=== PATIENT | female | born 1970 | race Caucasian/White ===

== ENCOUNTER 2018-08-23 20:14 | Emergency (ER) | payer OTHER, SELFPAY ==
[2018-08-23 20:31] VITALS: BP 155/94; PULSE 92; RESP 15; TEMP 37.2; O2SAT 96
--- NOTE | 2018-08-23 20:31 | ED.PSYCH ---
HPI - Psych General Chief Complaint: Psychiatric Symptoms Stated Complaint: possibly taken to much medication, tonight Time Seen by Provider: 08/23/18 20:19 Source: family Mode of arrival: ambulatory Limitations: no limitations History of Present Illness HPI Narrative: Patient is a 48-year-old female brought in by . is concerned he cannot find prescription of Paxil. He says she had a new prescription filled 90 days worth and there are 15 pills missing. Patient states that she only took 2 tablets. When asked directly if she is suicidal she does not answer. She is not forthcoming with information. She would like to be left alone. She denies taking any Xanax. She is hesitant to even have vitals done. Has been states that she has had a very difficult year she is an only child, in fact her brother when she was 8 years old her mother at the end of May and her dad is alling. MD complaint: feels depressed Related Data Home Medications Medication Instructions Recorded Confirmed levonorgestrel [Mirena] 52 mg IU #0 06/26/12 Previous Rx's Medication Instructions Recorded azithromycin [Zithromax] 250 - 500 mg PO QDAY #6 tab 06/24/17 benzonatate [Tessalon Perles] 100 mg PO TID #21 cap 06/24/17 codeine-guaifenesin 5 ml PO QHS #60 ml 06/24/17 Allergies Allergy/AdvReac Type Severity Reaction Status Date / Time lactose-reduced food Allergy Severe HIVES Verified 08/23/18 20:31 [From ENSURE] nutritional Allergy Severe HIVES Verified 08/23/18 20:31 supplement,special formulas [From ENSURE] codeine [CODEINE] Allergy Unknown Verified 08/23/18 20:31 sertraline [From ZOLOFT] Allergy Unknown Verified 08/23/18 20:31 Review of Systems Review of Systems unobtainable due to mental condition [facility] Surgical History History of third molar tooth extraction Status post delivery (01/07/06) Exam Initial Vital Signs Initial Vital Signs: Vital Signs Temperature 98.9 F 08/23/18 20:31 Pulse Rate 92 H 08/23/18 20:31 Respiratory Rate 15 08/23/18 20:31 Blood Pressure 155/94 H 08/23/18 20:31 Pulse Oximetry 96 08/23/18 20:31 Gen.: Patient very withdrawn poor eye contact HEENT: Head atraumatic, AISHA, EOMI Neck: Neck is supple Lungs: No respiratory distress. Clear bilaterally no wheezes rales or rhonchi Cardiac: No cyanosis. Regular rate rhythm no murmur Extremities: No deformity Neurologic: Moving all extreme Course Orders Ordered: ED Orders 08/23/18 20:48 Acetaminophen Stat Complete Blood Count AUTO DIFF Stat Comprehensive Metabolic Panel Stat Ethanol (ETOH) Stat Lactate (Lactic Acid) Stat Salicylate Stat Discontinued Medications Lorazepam (Ativan) 1 mg PO NOW ONE Stop: 08/23/18 21:45 Last Admin: 08/23/18 21:47 Dose: 1 mg Vital Signs - 8 hr 08/23/18 20:31 08/23/18 22:01 Temperature 98.9 F Pulse Rate 92 H 81 Respiratory Rate 15 18 Blood Pressure 155/94 H Blood Pressure [Left Wrist] 134/68 Pulse Oximetry 96 100 MDM - Psych Lab Data Attestation: I reviewed the patient's lab results. Result diagrams: 08/23/18 20:48 08/23/18 20:48 Lab Results 08/23/18 08/23/18 08/23/18 Range/Units 20:48 20:48 20:48 WBC 7.5 (4.5-11.0) X10^3/uL RBC 4.35 (4.0-5.2) X10^6/uL Hgb 14.5 (12.0-16.0) g/dL Hct 42.8 (36-46) % MCV 98.2 (80-100) fL MCH 33.2 (26-34) PG MCHC 33.8 (30-36) % RDW 12.9 (11.6-14.8) % Plt Count 316 (150-400) X10^3/uL Neut % (Auto) 61.6 (50-75) % Lymph % (Auto) 27.1 (25-40) % [place] % (Auto) 8.2 (3-14) % Eos % (Auto) 2.1 (2-4) % Baso % (Auto) 1.0 (0-2) % Neut # (Auto) 4600 (7122-2704) /uL Sodium 138 (137-145) mmol/L Potassium 3.9 (3.4-5.1) mmol/L Chloride 103 (98-107) mmol/L Carbon Dioxide 22 (22-32) mmol/L BUN 20 H (7-17) mg/dL Creatinine 0.90 (0.52-1.04) mg/dL Estimated GFR > 60.0 (>60) mL/min BUN/Creatinine Ratio 22.2 H (6-22) Glucose 87 (70-100) mg/dL Lactate 0.8 (0.7-2.1) mmol/L Calcium 9.4 (8.4-10.2) mg/dL Total Bilirubin 0.3 (0.2-1.3) mg/dL AST 25 (14-36) IU/L ALT 32 (9-52) IU/L Alkaline Phosphatase 90 (38-126) U/L Total Protein 6.7 (6.3-8.2) g/dL Albumin 4.2 (3.5-5.0) g/dL Globulin 2.5 (1.7-4.1) g/dL Albumin/Globulin Ratio 1.7 (1.0-2.8) Salicylates < 1.0 (<20) mg/dL Acetaminophen < 10 L (10-30) ug/mL Ethyl Alcohol < 10 mg/dL MDM Narrative Medical decision making narrative: Patient very withdrawn poor eye contact. I did talk to the patient without in the room. She was able to tell me that she only took 2 Paxil today she does not want to talk about anything further. She tried to get up and walk as room. Her was able to talk her into staying. She initially refused vitals, but was agreeable to have her who is an RN take vitals with help of our nursing staff. She then was agreeable to have blood work drawn. With suddenly patient became awake and much more talkative. She seemed back to her normal self. She can't remember why she is here but she knows she is at [facility]. She denies any suicidal ideations. She again states that she only took 2 Paxil. When confronted that there may be up to 15 pills missing is she is not sure why there would be. 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 Overall she has had a stressful year but feels like she wants to live. She feels ready and able to go home her would like to take her home. He feels safe doing so. Possible drug reaction versus a conversion reaction. At this time she is agreeable to be for a full exam. No sign of serotonin syndrome blood work within normal limits. She has told me twice that she only took 2 Paxil. At this time she is acting normal appropriate alert and oriented and does not meet involuntary criteria. Discharge Plan Departure Patient Disposition: Home Clinical Impression: Adverse drug reaction Discharge Date/Time: 08/23/18 22:02 Interventions: ED Discharge Assessment Last Done: 08/23/18 22:01 Instructions: Paroxetine Activity Restrictions/Additional Instructions: *You have been diagnosed with possible drug reaction *What to do: Unclear exactly what happened today. Blood work is reassuring. *Continue to take medications as directed Paxil 20 mg once a day *Follow up with your primary care provider in 2-3 days *Return to ER if you should have change in behavior, increased confusion or any new, worsening or concerning symptoms Prescriptions: No Action levonorgestrel [Mirena] 1 EACH intrauterine device 52 mg IU Qty: 0 RF: 0 azithromycin [Zithromax] 250 MG tablet 250 - 500 mg PO QDAY Qty: 6 RF: 0 benzonatate [Tessalon Perles] 100 MG capsule 100 mg PO TID Qty: 21 RF: 0 codeine-guaifenesin 100 MG/10 MG liquid 5 ml PO QHS Qty: 60 RF: 0 Referrals: Niko Acevedo MD [Primary Care Provider] -
[2018-08-23 20:59] LABS: Add Manual Diff / Slide Review NO; Eosinophils Percent Auto 2.1 % (2-4); Hematocrit 42.8 % (36-46); Hemoglobin 14.5 g/dL (12.0-16.0); Lymphocytes Percent Auto 27.1 % (25-40); Mean Corpuscular HGB Conc 33.8 % (30-36); Mean Corpuscular Hemoglobin 33.2 PG (26-34); Mean Corpuscular Volume 98.2 fL (80-100); Monocytes Percent Auto 8.2 % (3-14); Neutrophils Absolute Auto 4600 /uL (1500-7000); Neutrophils Percent Auto 61.6 % (50-75); Platelet Count 316 X10^3/uL (150-400); Red Blood Cell Count 4.35 X10^6/uL (4.0-5.2); Red Cell Distribution Width 12.9 % (11.6-14.8); White Blood Cell Count 7.5 X10^3/uL (4.5-11.0)
[2018-08-23 21:18] LABS: Acetaminophen < 10 ug/mL (10-30); Alanine Aminotransferase 32 IU/L (9-52); Albumin 4.2 g/dL (3.5-5.0); Albumin Globulin Ratio 1.7 (1.0-2.8); Alkaline Phosphatase 90 U/L (38-126); Aspartate Aminotransferase 25 IU/L (14-36); BUN Creatinine Ratio 22.2 (6-22); Bilirubin Total 0.3 mg/dL (0.2-1.3); Blood Urea Nitrogen 20 mg/dL (7-17); Calcium 9.4 mg/dL (8.4-10.2); Carbon Dioxide 22 mmol/L (22-32); Chloride 103 mmol/L (98-107); Estimated Glomerular Filt Rate > 60.0 mL/min (>60); Ethanol (ETOH) < 10 mg/dL; Globulin 2.5 g/dL (1.7-4.1); Glucose 87 mg/dL (70-100); HEMOLYSIS < 15 (0-50); Lactate (Lactic Acid) 0.8 mmol/L (0.7-2.1); Potassium 3.9 mmol/L (3.4-5.1); Sodium 138 mmol/L (137-145); Total Protein 6.7 g/dL (6.3-8.2)
[2018-08-23 21:19] LABS: Salicylate < 1.0 mg/dL (<20)
[2018-08-23] MEDS: LORazepam 0.5 MG TABLET 1 MG PO (21:47)
[2018-08-23 22:01] VITALS: BP 134/68; PULSE 81; RESP 18; O2SAT 100
== END 2018-08-23 22:02 | disposition home or self-care (01) ==
PROVIDERS: Emergency Provider Emergency Medicine; PCP Family Medicine
DX: F32.9 Major depressive disorder, single episode, unspecified (principal); T50.905A Adverse effect of unspecified drugs, medicaments and biological substances, initial encounter
CPT/HCPCS: 36415; 80053; 80320; 80329; 83605; 85025; 99282; 99283; G0480

== ENCOUNTER → 2019-03-22 14:21 | Outpatient (CLI) | payer OTHER, SELFPAY ==
[2019-03-22 15:15] LABS: Add Manual Diff / Slide Review NO; Basophils Absolute Auto 100 /uL (0-100); Basophils Percent Auto 0.6 % (0-2); Eosinophils Absolute Auto 100 /uL (0-450); Eosinophils Percent Auto 0.9 % (2-4); Hematocrit 38.9 % (36-46); Lymphocytes Absolute Auto 2500 /uL (1100-4500); Lymphocytes Percent Auto 25.5 % (25-40); Mean Corpuscular HGB Conc 33.4 % (30-36); Mean Corpuscular Hemoglobin 33.4 PG (26-34); Mean Corpuscular Volume 99.9 fL (80-100); Monocytes Absolute Auto 700 /uL (0-900); Monocytes Percent Auto 7.6 % (3-14); Neutrophils Absolute Auto 6400 /uL (1500-7000); Neutrophils Percent Auto 65.4 % (50-75); Platelet Count 371 X10^3/uL (150-400); Red Blood Cell Count 3.89 X10^6/uL (4.0-5.2); Red Cell Distribution Width 13.7 % (11.6-14.8); White Blood Cell Count 9.8 X10^3/uL (4.5-11.0)
[2019-03-22 15:30] LABS: Alanine Aminotransferase 28 IU/L (9-52); Albumin 3.9 g/dL (3.5-5.0); Albumin Globulin Ratio 1.4 (1.0-2.8); Alkaline Phosphatase 102 U/L (38-126); Aspartate Aminotransferase 25 IU/L (14-36); Bilirubin Total 0.3 mg/dL (0.2-1.3); Blood Urea Nitrogen 19 mg/dL (7-17); Calcium 9.4 mg/dL (8.4-10.2); Carbon Dioxide 26 mmol/L (22-32); Chloride 100 mmol/L (98-107); Cholesterol 207 mg/dL (140-199); Estimated Glomerular Filt Rate 59.7 mL/min (>60); Globulin 2.8 g/dL (1.7-4.1); Glucose 70 mg/dL (70-100); HDL Cholesterol 44 mg/dL (40-60); HEMOLYSIS < 15 (0-50); LDL Cholesterol Calculated 110 mg/dL (<100); Potassium 4.3 mmol/L (3.4-5.1); Sodium 137 mmol/L (137-145); Total Protein 6.7 g/dL (6.3-8.2); Triglycerides 265 mg/dL (35-150)
[2019-03-22 15:57] LABS: Thyroid Stimulating Hormone 5.87 uIU/mL (0.47-4.68)
== END ==
PROVIDERS: PCP Family Medicine; Visit Provider Psychiatry & Neurology Psychiatry
DX: F30.9 Manic episode, unspecified (principal); Z01.89 Encounter for other specified special examinations; Z51.81 Encounter for therapeutic drug level monitoring; Z79.899 Other long term (current) drug therapy
CPT/HCPCS: 36415; 80053; 80061; 84443; 85025

== ENCOUNTER → 2019-04-05 15:13 | Outpatient (CLI) | payer OTHER, SELFPAY ==
[2019-04-05 15:32] LABS: RBC Urine None Seen (0-5/HPF)
[2019-04-05 15:34] LABS: Add Manual Diff / Slide Review NO; Basophils Absolute Auto 0 /uL (0-100); Basophils Percent Auto 0.7 % (0-2); Eosinophils Absolute Auto 0 /uL (0-450); Eosinophils Percent Auto 0.5 % (2-4); Hematocrit 37.9 % (36-46); Hemoglobin 12.9 g/dL (12.0-16.0); Lymphocytes Absolute Auto 2300 /uL (1100-4500); Lymphocytes Percent Auto 33.7 % (25-40); Mean Corpuscular HGB Conc 34.1 % (30-36); Mean Corpuscular Hemoglobin 33.8 PG (26-34); Mean Corpuscular Volume 99.3 fL (80-100); Monocytes Absolute Auto 600 /uL (0-900); Monocytes Percent Auto 9.1 % (3-14); Neutrophils Absolute Auto 3900 /uL (1500-7000); Platelet Count 325 X10^3/uL (150-400); Red Blood Cell Count 3.81 X10^6/uL (4.0-5.2); Red Cell Distribution Width 13.6 % (11.6-14.8)
[2019-04-05 16:43] LABS: Alanine Aminotransferase 29 IU/L (9-52); Albumin 3.8 g/dL (3.5-5.0); Albumin Globulin Ratio 1.4 (1.0-2.8); Alkaline Phosphatase 129 U/L (38-126); Aspartate Aminotransferase 24 IU/L (14-36); BUN Creatinine Ratio 16.4 (6-22); Bilirubin Total 0.3 mg/dL (0.2-1.3); Blood Urea Nitrogen 18 mg/dL (7-17); Calcium 9.2 mg/dL (8.4-10.2); Carbon Dioxide 27 mmol/L (22-32); Chloride 103 mmol/L (98-107); Estimated Glomerular Filt Rate 53.2 mL/min (>60); Globulin 2.8 g/dL (1.7-4.1); Glucose 72 mg/dL (70-100); HEMOLYSIS < 15 (0-50); Phosphorous 4.3 mg/dL (2.5-4.5); Potassium 4.8 mmol/L (3.4-5.1); Sodium 139 mmol/L (137-145); Total Protein 6.6 g/dL (6.3-8.2)
[2019-04-05 17:00] LABS: Free T4, Direct Thyroxine 0.41 ng/dL (0.78-2.19)
[2019-04-05 17:14] LABS: Thyroid Stimulating Hormone 6.17 uIU/mL (0.47-4.68)
[2019-04-05 17:49] LABS: Folate > 20.0 ng/mL (2.76-20.0); Vitamin B12 462 pg/mL (239-931)
[2019-04-05 18:18] LABS: HIV 1 & 2 Ab/Ag 4th Gen Combo NEGATIVE (NEGATIVE)
[2019-04-05 19:43] LABS: Appearance Urine UA CLEAR; Bilirubin Urine UA NEGATIVE (NEGATIVE); Color Urine UA YELLOW; Glucose Urine UA NEGATIVE (Negative); Ketones Urine UA NEGATIVE (NEGATIVE); Leukocyte Esterase Urine UA NEGATIVE (NEGATIVE); Nitrite Urine UA NEGATIVE (Negative); Occult Blood Urine UA NEGATIVE (Negative); Protein Urine UA NEGATIVE (Negative); Specific Gravity Urine UA <=1.005 (1.000-1.035); Urobilinogen Urine UA 0.2 E.U./dL (0.2); pH Urine UA 5.5 (4.5-8.0)
[2019-04-05 19:56] LABS: Pregnancy Test Urine Negative (Negative); Urine Amphetamines Negative (Negative); Urine Barbiturates Negative (Negative); Urine Benzodiazepines Positive (Negative); Urine Cocaine Negative (Negative); Urine MDMA Negative (Negative); Urine Methadone Negative (Negative); Urine Methamphetamines Negative (Negative); Urine Morphine/Opi cutoff 2000 Negative (Negative); Urine Oxycodone Negative (Negative); Urine Phencyclidine Negative (Negative); Urine Tetrahydrocannabinol Negative (Negative); Urine Tricyclic Antidepressant Negative (Negative)
[2019-04-05 20:03] LABS: Squamous Epithelial Cell Urine 5-10 /HPF (0-5/HPF)
[2019-04-05 20:04] LABS: Bacteria Urine Moderate (10-30); Culture Indicated Urine Cult Not Indicated; WBC Urine 1-5/HPF (0-5/HPF)
[2019-04-07 23:56] LABS: RPR Screen Nonreactive (Nonreactive)
== END ==
PROVIDERS: PCP Family Medicine; Visit Provider Psychiatry & Neurology Psychiatry
DX: F29 Unspecified psychosis not due to a substance or known physiological condition (principal); F30.9 Manic episode, unspecified
CPT/HCPCS: 36415; 80053; 80305; 81001; 81025; 82607; 82746; 84100; 84439; 84443; 85025; 86592; 87389

== ENCOUNTER → 2019-04-18 14:47 | Outpatient (CLI) | payer OTHER, SELFPAY ==
--- NOTE | 2019-04-18 14:48 | DI.CT.S_ITS ---
PROCEDURE: CT HEAD/BRAIN WO CON INDICATIONS: New onset iza psychosis, rule out lesions/causal factor TECHNIQUE: Noncontrast 4.5 mm thick angled axial sections acquired from the foramen magnum to the vertex, with coronal and sagittal reformats. For radiation dose reduction, the following was used: automated exposure control, adjustment of mA and/or kV according to patient size. COMPARISON: None. FINDINGS: Image quality: Excellent. CSF spaces: Basal cisterns are patent. No extra-axial fluid collections. Ventricles are normal in size and shape. Brain: No midline shift. No intracranial masses or hemorrhage. Zamora-white matter interface is normal. Skull and face: Calvarium and visualized facial bones are intact, without suspicious lesions. Sinuses: Visualized sinuses and mastoids are clear. IMPRESSION: Normal for age, source of altered mental status is not seen. Dictated by: Keegan Beverly M.D. on 04/18/2019 at 15:16 Approved by: Keegan Beverly M.D. on 04/18/2019 at 15:17
== END ==
PROVIDERS: Family Provider Family Medicine; PCP Family Medicine; Visit Provider Psychiatry & Neurology Psychiatry
DX: F30.9 Manic episode, unspecified (principal); F29 Unspecified psychosis not due to a substance or known physiological condition
CPT/HCPCS: 70450

== ENCOUNTER 2020-05-26 15:06 | Emergency (ER) | payer OTHER, SELFPAY ==
[2020-05-26 15:18] VITALS: BP 118/74; PULSE 88; RESP 16; TEMP 36.7; O2SAT 97
--- NOTE | 2020-05-26 15:18 | DI.RAD.S_ITS ---
PROCEDURE: XR WRIST LT MIN 3V INDICATIONS: glf, lt wrist/elbow pain TECHNIQUE: 4 views of the wrist were acquired. COMPARISON: None. FINDINGS: Bones: No fractures or dislocations. No suspicious bony lesions. Scaphoid view: No trauma. Soft tissues: No suspicious soft tissue calcifications. IMPRESSION: No trauma found. Dictated by: Keegan Beverly M.D. on 05/26/2020 at 15:46 Approved by: Keegan Beverly M.D. on 05/26/2020 at 15:46
--- NOTE | 2020-05-26 15:18 | DI.RAD.S_ITS ---
PROCEDURE: XR ELBOW LT MIN 3V INDICATIONS: glf, lt wrist/elbow pain TECHNIQUE: 3 views of the elbow were acquired. COMPARISON: None. FINDINGS: Bones: No fractures or dislocations. No suspicious bony lesions. Soft tissues: No elbow joint effusion. No suspicious soft tissue calcifications. IMPRESSION: No trauma found. Dictated by: Keegan Beverly M.D. on 05/26/2020 at 15:51 Approved by: Keegan Beverly M.D. on 05/26/2020 at 15:51
--- NOTE | 2020-05-26 16:27 | ED_ITS ---
HPI - Extremity Injury (Upper) <Queta ParisiLOLI - Last Filed: 05/26/20 21:41> General Chief Complaint: Extremity Injury, Upper Stated Complaint: left elbow / wrist injury Time Seen by Provider: 05/26/20 15:13 Source: patient Mode of arrival: Ambulatory History of Present Illness HPI narrative: 50yo female presents to the ED for left wrist and elbow pain. Patient states she tripped on the sidewalk and fell on her left hand. She states the pain was instant insignificant, she lied on the sidewalk for 5-10 minutes due to the pain. She was able to get up in states the pain is a dull aching pain that is worse with movement and her left elbow and wrist. Patient denies any previous injury to her left arms. She reports abrasions to left to her left elbow. Patient denies any head injury, syncope, dizziness, nausea, vomiting, diarrhea, shoulder pain, or any other concerns. Denies any other injuries. Related Data Home Medications Medication Instructions Recorded Confirmed levonorgestrel [Mirena] 52 mg IU #0 06/26/12 05/15/20 levothyroxine 25 mcg tablet 75 mcg PO DAILY #60 tab 06/14/19 05/15/20 propranolol 20 mg tablet 40 mg PO BID tab 06/14/19 05/15/20 multivitamin 1 tab PO DAILY 07/19/19 05/15/20 famotidine 20 mg tablet 20 mg PO DAILY 09/10/19 05/15/20 furosemide 20 mg tablet 40 mg PO DAILY PRN tab 01/15/20 05/15/20 L-theanine 200 mg PO BID 05/15/20 Previous Rx's Medication Instructions Recorded ziprasidone HCl 20 mg capsule 20 mg PO BID PRN #60 cap 12/27/19 haloperidol 5 mg tablet 5 mg PO BID PRN #60 tab 04/08/20 diazepam 10 mg tablet 10 mg PO .COMPLEX #120 tab MDD 40mg 05/12/20 ziprasidone HCl 80 mg capsule 80 mg PO BID #60 cap 05/15/20 Allergies Allergy/AdvReac Type Severity Reaction Status Date / Time monosodium glutamate Allergy Severe Anaphylaxis Verified 05/15/20 16:00 codeine [CODEINE] Allergy Unknown Verified 05/15/20 16:00 sertraline [From ZOLOFT] Allergy Unknown Verified 05/15/20 16:00 Review of Systems <LOLI Harrison - Last Filed: 05/26/20 21:41> Review of Systems Narrative: REVIEW OF SYSTEMS: GENERAL: Denies fever or chills. HENT: No head trauma. CARDIOVASCULAR: No chest pain or syncope. RESPIRATORY: No shortness of breath or cough. GASTROINTESTINAL: No nausea. MUSCULOSKELETAL: Complains of right hand and elbow pain, see HPI. INTEGUMENTARY: No rash, lesions, or pruritus. NEURO: No numbness, tingling. PSYCH: No behavior or mood changes. Patient History <LOLI Harrison - Last Filed: 05/26/20 21:41> Medical History No significant medical problems (Acute) Surgical History History of third molar tooth extraction Status post delivery (01/07/06) Social History Smoking Status: Current every day smoker (1/4 pack day ) Smoking Status: Current every day smoker (1/4 pack day ) Exam <LOLI Harrison - Last Filed: 05/26/20 21:41> Initial Vital Signs Initial Vital Signs: Vital Signs Temperature 98.1 F 05/26/20 15:18 Pulse Rate 88 05/26/20 15:18 Respiratory Rate 16 05/26/20 15:18 Blood Pressure 118/74 05/26/20 15:18 Pulse Oximetry 97 05/26/20 15:18 PHYSICAL EXAMINATION: GENERAL: Well groomed, alert, and cooperative. Answers questions promptly and appropriately. Vital signs noted. HENT: Normocephalic, atraumatic. EYES: Symmetrical, sclera white, no periorbital swelling. CARDIOVASCULAR: Regular rate. RESPIRATORY: Normal respiratory rate, trachea midline, airway patent. No stridor, nasal flaring or accessory muscle use. MUSCULOSKELETAL: Tenderness to palpation of left wrist and elbow, a 8 cm x 4 cm abrasion noted to left elbow, no bruising, swelling, or deformity. Decreased range of motion to elbow and wrist due to pain. Normal gait and coordination. Equal tone and mass bilaterally. EXTREMITIES: CMS intact. No pedal edema. SKIN: Warm, dry, soft, appropriate color for ethnicity. No lesions, rashes, or wounds. NEURO: Alert and Oriented X 3. No sensory deficits. PSYCH: Appropriate affect and mood. <Musa Amaya MD - Last Filed: 06/23/20 03:10> Initial Vital Signs Initial Vital Signs: Vital Signs Temperature 98.1 F 05/26/20 15:18 Pulse Rate 88 05/26/20 15:18 Respiratory Rate 16 05/26/20 15:18 Blood Pressure 118/74 05/26/20 15:18 Pulse Oximetry 97 05/26/20 15:18 Course <LOLI Harrison - Last Filed: 05/26/20 21:41> Course Course Narrative: Bacitracin applied to wound, patient given wrist brace to help with pain. Orders Ordered: Discontinued Medications Bacitracin (Bacitracin) 1 applic TOP NOW ONE Stop: 05/26/20 16:14 Last Admin: 05/26/20 16:32 Dose: 1 applic Documented by: DARIA Ketorolac Tromethamine (Toradol) 30 mg IM NOW ONE Stop: 05/26/20 16:14 Last Admin: 05/26/20 16:32 Dose: 30 mg Documented by: DARIA Vital Signs Vital signs: Vital Signs - 8 hr 05/26/20 15:18 Temperature 98.1 F Pulse Rate 88 Respiratory Rate 16 Blood Pressure 118/74 Pulse Oximetry 97 <Musa Amaya MD - Last Filed: 06/23/20 03:10> Orders Ordered: Discontinued Medications Bacitracin (Bacitracin) 1 applic TOP NOW ONE Stop: 05/26/20 16:14 Last Admin: 05/26/20 16:32 Dose: 1 applic Documented by: DARIA Ketorolac Tromethamine (Toradol) 30 mg IM NOW ONE Stop: 05/26/20 16:14 Last Admin: 05/26/20 16:32 Dose: 30 mg Documented by: DARIA Vital Signs Vital signs: Vital Signs - 8 hr 05/26/20 15:18 Temperature 98.1 F Pulse Rate 88 Respiratory Rate 16 Blood Pressure 118/74 Pulse Oximetry 97 MDM - Extremity Injury (Upper) <LOLI Harrison - Last Filed: 05/26/20 21:41> Medical Records Attestation: I reviewed the patient's medical records. Lab Data Attestation: I reviewed the patient's lab results. Imaging Data Extremity x-ray #1: Radiologist's Impression: [address] [address] XRay Report Signed Patient: Eliz Todd [facility]#: [id number] : 1970Acct:[id number] Age/Sex: 50 / FDate of Service: 05/26/20 Loc: ED Accession Number: [id number] Procedure: XR wrist LT min 3V Ordering Provider: Queta Parisi PROCEDURE: XR WRIST LT MIN 3V INDICATIONS: glf, lt wrist/elbow pain TECHNIQUE: 4 views of the wrist were acquired. COMPARISON: None. FINDINGS: Bones: No fractures or dislocations. No suspicious bony lesions. Scaphoid view: No trauma. Soft tissues: No suspicious soft tissue calcifications. IMPRESSION: No trauma found. Dictated by: Keegan Beverly M.D. on 05/26/2020 at 15:46 Approved by: Keegan Beverly M.D. on 05/26/2020 at 15:46 Extremity x-ray #2: Radiologist's Impression: [address] [address] XRay Report Signed Patient: Eliz Todd [facility]#: [id number] : 1970Acct:[id number] Age/Sex: 50 / FDate of Service: 05/26/20 Loc: ED Accession Number: [id number] Procedure: XR elbow LT min 3V Ordering Provider: Queta Parisi PROCEDURE: XR ELBOW LT MIN 3V INDICATIONS: glf, lt wrist/elbow pain TECHNIQUE: 3 views of the elbow were acquired. COMPARISON: None. FINDINGS: Bones: No fractures or dislocations. No suspicious bony lesions. Soft tissues: No elbow joint effusion. No suspicious soft tissue calcifications. IMPRESSION: No trauma found. Dictated by: Keegan Beverly M.D. on 05/26/2020 at 15:51 Approved by: Keegan Beverly M.D. on 05/26/2020 at 15:51 [facility] Narrative Medical decision making narrative: History and examination reveals a 50-year-old female complaining of mechanical fall with left wrist and elbow pain. X-rays negative for any fractures. I suspect wrist pain is most likely caused by strain. Abrasion noted without need for suture repair. Bacitracin applied. Patient was educated about importance of follow-up and watching for infection. Return precautions given for new or worsening symptoms. Patient agreed to plan of care verbalized understanding Discharge Plan Departure Patient Disposition: Home Clinical Impression: Sprain of left wrist, Abrasion Discharge Date/Time: 05/26/20 16:37 Instructions: DI for Wrist Pain Activity Restrictions/Additional Instructions: Thank you for entrusting me with your care today. As discussed, your elbow and wrist x-rays are negative for any fractures. You most likely sprained your wrist. I recommend wearing a brace for the next few days to help with pain. Please apply bacitracin to your abrasion, keep the area clean, wash with soap and water. Watch for signs of infection such as increasing redness, purulent drainage, or significant pain if these occur please be seen immediately. Return emergency department for any new or worsening symptoms. Prescriptions: No Action levothyroxine 25 mcg tablet 75 mcg PO DAILY Qty: 60 RF: 0 furosemide [Lasix] 20 mg tablet 40 mg PO DAILY PRNRF: 0 propranolol 20 mg tablet 40 mg PO BID RF: 0 multivitamin Tablet 1 tab PO DAILY RF: 0 famotidine [Pepcid] 20 mg tablet 20 mg PO DAILY RF: 0 haloperidol 5 mg tablet 5 mg PO BID PRN (Reason: agitation) Qty: 60 RF: 2 Hold Instructions: 02/18 ziprasidone HCl 80 mg capsule 80 mg PO BID Qty: 60 RF: 1 L-theanine 200 mg PO BID RF: 0 levonorgestrel [Mirena] 1 EACH intrauterine device 52 mg IU Qty: 0 RF: 0 ziprasidone HCl 20 mg capsule 20 mg PO BID PRN (Reason: anxiety/agitation) Qty: 60 RF: 5 diazepam 10 mg tablet 10 mg PO .COMPLEX MDD 40mg Qty: 120 RF: 1 Referrals: Niko Acevedo MD [Primary Care Provider] -
[2020-05-26] MEDS: KETOROLAC 60 MG/2 ML VIAL 30 MG IM (16:32)
[2020-05-26] MEDS: BACITRACIN OINT 0.9 GM PCKT 1 APPLIC TOP (16:32)
== END 2020-05-26 16:37 | disposition home or self-care (01) ==
PROVIDERS: Emergency Provider Nurse Practitioner; Family Provider Family Medicine; PCP Family Medicine
DX: S63.502A Unspecified sprain of left wrist, initial encounter (principal); W01.0XXA Fall on same level from slipping, tripping and stumbling without subsequent striking against object, initial encounter
CPT/HCPCS: 73080; 73110; 96372; 99283; 99284; J1885

== ENCOUNTER → 2020-07-25 12:20 | Outpatient (CLI) | payer OTHER, SELFPAY ==
[2020-07-25 13:16] LABS: Alanine Aminotransferase 17 IU/L (<35); Albumin 3.8 g/dL (3.5-5.0); Albumin Globulin Ratio 1.4 (1.0-2.8); Alkaline Phosphatase 113 U/L (38-126); Aspartate Aminotransferase 21 IU/L (14-36); BUN Creatinine Ratio 14.1 (6-22); Bilirubin Total 0.3 mg/dL (0.2-1.3); Blood Urea Nitrogen 11 mg/dL (7-17); Calcium 8.7 mg/dL (8.4-10.2); Carbon Dioxide 26 mmol/L (22-32); Chloride 105 mmol/L (98-107); Creatine Kinase 32 U/L (30-135); Estimated Glomerular Filt Rate > 60.0 mL/min (>60); Globulin 2.8 g/dL (1.7-4.1); Glucose 107 mg/dL (70-100); HEMOLYSIS 25 (0-50); Potassium 4.3 mmol/L (3.4-5.1); Sodium 138 mmol/L (137-145); Total Protein 6.6 g/dL (6.3-8.2)
[2020-07-25 14:12] LABS: Thyroid Stimulating Hormone 3.13 uIU/mL (0.47-4.68)
== END ==
PROVIDERS: Family Provider Family Medicine; PCP Family Medicine; Referring Provider Psychiatry & Neurology Psychiatry; Visit Provider Psychiatry & Neurology Psychiatry
DX: F31.9 Bipolar disorder, unspecified (principal); M79.10 Myalgia, unspecified site; Z51.81 Encounter for therapeutic drug level monitoring; E03.9 Hypothyroidism, unspecified
CPT/HCPCS: 36415; 80053; 82550; 83735; 84443

== ENCOUNTER → 2021-02-05 14:30 | Outpatient (CLI) | payer OTHER, SELFPAY ==
[2021-02-05] MEDS: COVID-19 VACC, Ad26(JANSSEN)/PF 0.5 ML IM (14:36)
== END ==
PROVIDERS: Visit Provider Internal Medicine
DX: Z23 Encounter for immunization (principal)
CPT/HCPCS: 0031A; 91303

== ENCOUNTER → 2021-05-17 13:58 | Outpatient (CLI) | payer OTHER, SELFPAY ==
[2021-05-17 15:22] LABS: Add Manual Diff / Slide Review NO; Basophils Absolute Auto 100 /uL (0-100); Basophils Percent Auto 0.9 % (0-2); Eosinophils Absolute Auto 100 /uL (0-450); Eosinophils Percent Auto 0.7 % (2-4); Hematocrit 42.7 % (36-46); Hemoglobin 14.2 g/dL (12.0-16.0); Lymphocytes Absolute Auto 2300 /uL (1100-4500); Mean Corpuscular HGB Conc 33.2 % (30-36); Mean Corpuscular Hemoglobin 32.3 PG (26-34); Mean Corpuscular Volume 97.3 fL (80-100); Monocytes Absolute Auto 600 /uL (0-900); Monocytes Percent Auto 6.8 % (3-14); Neutrophils Absolute Auto 5500 /uL (1500-7000); Neutrophils Percent Auto 64.6 % (50-75); Platelet Count 354 X10^3/uL (150-400); Red Blood Cell Count 4.39 X10^6/uL (4.0-5.2); Red Cell Distribution Width 13.9 % (11.6-14.8); White Blood Cell Count 8.5 X10^3/uL (4.5-11.0)
[2021-05-17 15:23] LABS: Hemoglobin A1C% w Est Avg Glu 5.1 % (4.0-6.0)
[2021-05-17 15:46] LABS: Alanine Aminotransferase 15 IU/L (<35); Albumin 3.9 g/dL (3.5-5.0); Albumin Globulin Ratio 1.3 (1.0-2.8); Alkaline Phosphatase 145 U/L (38-126); Aspartate Aminotransferase 21 IU/L (14-36); BUN Creatinine Ratio 18.7 (6-22); Bilirubin Total 0.2 mg/dL (0.2-1.3); Blood Urea Nitrogen 14 mg/dL (7-17); Carbon Dioxide 30 mmol/L (22-32); Chloride 105 mmol/L (98-107); Cholesterol 238 mg/dL (140-199); Estimated Glomerular Filt Rate > 60.0 mL/min (>60); Globulin 2.9 g/dL (1.7-4.1); Glucose 92 mg/dL (70-100); HDL Cholesterol 34 mg/dL (40-60); HEMOLYSIS < 15 (0-50); Potassium 4.1 mmol/L (3.4-5.1); Sodium 141 mmol/L (137-145); Total Protein 6.8 g/dL (6.3-8.2)
[2021-05-17 15:53] LABS: Triglycerides 684 mg/dL (35-150)
[2021-05-17 16:16] LABS: Thyroid Stimulating Hormone 2.28 uIU/mL (0.47-4.68)
== END ==
PROVIDERS: PCP Physician Assistant; Referring Provider Psychiatry & Neurology Psychiatry; Visit Provider Psychiatry & Neurology Psychiatry
DX: E03.9 Hypothyroidism, unspecified (principal); F31.9 Bipolar disorder, unspecified; Z51.81 Encounter for therapeutic drug level monitoring
CPT/HCPCS: 36415; 80053; 80061; 83036; 84443; 85025

== ENCOUNTER → 2021-08-13 13:44 | Outpatient (CLI) | payer OTHER, SELFPAY ==
[2021-08-13 15:19] LABS: NT-proBNP (BNP-Adult 18+) 99 pg/mL (<125)
[2021-08-13 16:42] LABS: Creatinine Urine Random 32.3 mg/dL; Protein (Total) Urine Random 14 mg/dL (0-12); Protein Creatinine Ratio Urine 0.43 GRAM/24H
== END ==
PROVIDERS: PCP Physician Assistant; Referring Provider Internal Medicine Cardiovascular Disease; Visit Provider Internal Medicine Cardiovascular Disease
DX: R06.02 Shortness of breath (principal); R60.1 Generalized edema
CPT/HCPCS: 36415; 82570; 83880; 84156

== ENCOUNTER 2021-09-27 16:30 | Emergency (ER) | payer OTHER, SELFPAY | END 2021-09-27 17:53 | disposition left against medical advice (07) | PROVIDERS: Emergency Provider Emergency Medicine; PCP Physician Assistant | DX: Z53.21 Procedure and treatment not carried out due to patient leaving prior to being seen by health care provider (principal) ==

== ENCOUNTER 2021-10-03 10:58 | Inpatient (IN) | payer MEDICARE, SELFPAY ==
[2021-10-03] VITALS (33 sets, daily range): BP systolic 122–154; BP diastolic 61–82; PULSE 62–87; RESP 20–69; TEMP 36.2–39.6; O2SAT 90–98; BMI 31.8
--- NOTE | 2021-10-03 11:28 | ED.SOB ---
HPI - SOB/Dyspnea General Chief Complaint: Shortness of Breath/Dyspnea Stated Complaint: covid +, high fever, oxygen goes to 80 Time Seen by Provider: 10/03/21 11:27 Source: patient Mode of arrival: Ambulatory Limitations: no limitations History of Present Illness HPI Narrative: This is a 51-year-old female with a history of bipolar disorder with psychotic features, prior benzodiazepine abuse and agoraphobia. Patient states she is vaccinated for coronavirus. Symptoms started about 10 days ago. Patient is somewhat confused but states she has chest pain. She has had fevers. She denies nausea or vomiting. She denies diarrhea constipation. Patient has been using home O2 that was left over from a family member. Patient has had increasing work of breathing. Patient states she does feel confused. She is repetitive when she answers questions. Related Data Home Medications Medication Instructions Recorded Confirmed levonorgestrel 20 mcg/24 hours (7 52 mg IU #0 06/26/12 08/09/21 yrs) 52 mg intrauterine device (Mirena) levothyroxine 25 mcg tablet 75 mcg PO DAILY #60 tab 06/14/19 10/03/21 multivitamin 1 tab PO DAILY 07/19/19 10/03/21 famotidine 20 mg tablet (Pepcid) 20 mg PO DAILY 09/10/19 10/03/21 L-theanine 200 mg PO BID 05/15/20 10/03/21 methocarbamol 500 mg tablet 500 - 1,000 mg PO QID tab 08/25/20 10/03/21 tramadol 50 mg tablet 50 mg PO Q6H PRN tab 08/09/21 10/03/21 aripiprazole 5 mg tablet 7.5 mg PO BEDTIME 10/03/21 10/03/21 diazepam 10 mg tablet 30 mg PO BID 10/03/21 10/03/21 propranolol 40 mg tablet 40 mg PO BID 10/03/21 10/03/21 Previous Rx's Medication Instructions Recorded duloxetine 40 mg capsule,delayed 40 mg PO DAILY #90 cap 06/11/21 release aripiprazole 300 mg intramuscular 300 mg IM QMONTH #1 ea 09/24/21 suspension,extended release (Abilify Maintena) Allergies Allergy/AdvReac Type Severity Reaction Status Date / Time monosodium glutamate Allergy Severe Anaphylaxis Verified 08/09/21 15:57 paliperidone Allergy Intermediate Rash/hives Verified 08/09/21 15:57 codeine [CODEINE] Allergy Unknown Verified 08/09/21 15:57 sertraline [From ZOLOFT] Allergy Unknown Verified 08/09/21 15:57 Review of Systems Review of Systems ROS Unobtainable: All systems reviewed & are unremarkable except as noted in HPI and below Patient History Medical History Hypothyroidism Laly No significant medical problems Surgical History History of third molar tooth extraction Status post delivery (01/07/06) Social History household members: spouse Smoking Status: Current every day smoker alcohol intake: former Smoking Status: Current every day smoker Substance Use Type: does not use Exam Narrative Exam Narrative: GEN: Disheveled female, alert and oriented but is somewhat repetitive to some questions, patient appears to be in severe distress. HEENT: Atraumatic, pupils are equal round reactive to light, extraocular movements are intact, nares are clear. HEART: Regular rate and rhythm without murmur, clicks, rubs. No carotid bruits, pulses are equal in upper and lower extremities LUNGS:Lungs the breath sounds decreased bilaterally, positive for tachypnea, speaks in 3-4 word sentences. No rales, crackles, chest moves symmetrically ABD:bowel sounds normal, soft, non-tender, no guarding, rebound, rigidity, no masses noted, no hepatosplenomegaly :No CVA tenderness MSCL: Non-tender, no muscle atrophy, muscles strength 5/5 upper and lower extremities, full range of motion NEURO:CN 2-12 intact, sensation normal, reflexes 2/4 upper and lower extremities. SKIN: No rash, erythema or other skin changes noted. Initial Vital Signs Initial Vital Signs: Vital Signs Temperature 98.7 F 10/03/21 11:04 Pulse Rate 79 10/03/21 11:04 Respiratory Rate 32 H 10/03/21 11:04 Blood Pressure 139/75 10/03/21 11:04 Pulse Oximetry 92 10/03/21 11:04 Scores GCS Kandace coma scale eye opening: Spontaneous Kandace coma scale verbal response: Confused Kandace coma scale motor response: Obey commands [place] coma scale total score: 14 Course Orders Ordered: ED Orders 10/03/21 11:38 C-Reactive Protein Quant Stat Complete Blood Count AUTO DIFF Stat Comprehensive Metabolic Panel Stat D Dimer Stat Ferritin Stat Lactate (Lactic Acid) Stat Lactate Dehydrogenase Stat NT-proBNP (BNP-Adult 18+) Stat Procalcitonin Stat Troponin & CK Cardiac Panel Stat 10/03/21 11:39 XR chest 1V Stat ABG [Arterial Blood Gas] Stat Arterial Blood Gas Stat EKG-12 Lead Stat High flow/High humidity nasal STAT 10/03/21 11:50 COVID19 -Nasal swab/Pre-Proc Stat 10/03/21 11:56 CT head/brain wo con Stat 10/03/21 12:00 Blood Culture Stat 10/03/21 13:38 Urine Drug Screen, Rapid Stat Acetaminophen (Acetaminophen 325 Mg Tablet) 650 mg PO Q6HR PRN PRN Reason: Fever Aripiprazole (Aripiprazole 10 Mg Tablet) 7.5 mg PO BEDTIME [facility] Dexamethasone (Dexamethasone 10 Mg/Ml Vial) 6 mg IV DAILY [facility] Stop: 10/13/21 08:59 Diazepam (Diazepam 5 Mg Tablet) 10 mg PO BID [facility] Diazepam (Diazepam 5 Mg Tablet) 20 mg PO DAILY@1400 [facility] Diazepam (Diazepam 5 Mg Tablet) 20 mg PO DAILY@1700 [facility] Docusate Sodium (Docusate 100 Mg Capsule) 100 mg PO BID [facility] Duloxetine HCl (Duloxetine 20 Mg Capsule) 40 mg PO DAILY [facility] Enoxaparin Sodium (Enoxaparin 40 Mg/0.4 Ml Syringe) 40 mg SUBCUT DAILY [facility] Famotidine (Famotidine 20 Mg Tablet) 20 mg PO DAILY [facility] Remdesivir 100 mg/ Sodium (Chloride) 250 mls @ 250 mls/hr IV 1200 [facility] Stop: 10/07/21 12:59 dexmedeTOMIDine in 0.9 % NaCL (Precedex) 400 mcg in 100 mls @ 4.082 mls/hr IV TITRATE M[facility]IMA; Protocol Last Titration: 10/03/21 17:17 Dose: 0.3 mcg/kg/hr, 6.124 mls/hr Documented by: Admin: 10/03/21 15:39 Dose: 0.2 mcg/kg/hr, 4.082 mls/hr Documented by: KENTRELL Sodium Chloride (Normal Saline 0.9%) 1,000 mls @ 40 mls/hr IV CONT [facility] Levothyroxine Sodium (Levothyroxine 75 Mcg Tablet) 75 mcg PO DAILY@0600 [facility] Magnesium Hydroxide (Magnesium Hydroxide 30 Ml Udc) 30 ml PO BID [facility] Naloxone HCl (Naloxone 0.4 Mg/Ml Vial) 0.2 mg IV Q2MIN PRN PRN Reason: Opiate Reversal Nicotine (Nicotine 21 Mg Patch) 21 mg TOP DAILY [facility] Propranolol HCl (Propranolol 40 Mg Tablet) 40 mg PO BID [facility] Sennosides (Sennosides 8.6 Mg Tablet) 17.2 mg PO BEDTIME [facility] Tramadol HCl (Tramadol 50 Mg Tablet) 50 mg PO QID [facility] Last Admin: 10/03/21 16:42 Dose: 50 mg Documented by: KENTRELL Discontinued Medications Dexamethasone (Dexamethasone 10 Mg/Ml Vial) 6 mg IV NOW ONE Stop: 10/03/21 11:41 Last Admin: 10/03/21 11:58 Dose: 6 mg Documented by: GERARDO Diazepam (Diazepam 5 Mg Tablet) 30 mg PO NOW ONE Stop: 10/03/21 14:56 Last Admin: 10/03/21 15:36 Dose: 30 mg Documented by: KENTRELL Diazepam (Diazepam 5 Mg Tablet) 30 mg PO BID [facility] Remdesivir 200 mg/ Sodium (Chloride) 250 mls @ 250 mls/hr IV NOW ONE Stop: 10/03/21 12:39 Last Infusion: 10/03/21 13:20 Dose: 0 mls/hr Documented by: Infusion: 10/03/21 12:58 Dose: 250 mls/hr Documented by: Infusion: 10/03/21 12:38 Dose: 0 mls/hr Documented by: Admin: 10/03/21 11:58 Dose: 250 mls/hr Documented by: GERARDO Ceftriaxone Sodium 1,000 mg/ (Sodium Chloride) 100 mls @ 200 mls/hr IV NOW ONE Stop: 10/03/21 15:45 Last Infusion: 10/03/21 16:33 Dose: 0 mls/hr Documented by: Admin: 10/03/21 16:03 Dose: 200 mls/hr Documented by: KENTRELL Vital Signs Vital signs: Vital Signs - 8 hr 10/03/21 11:04 10/03/21 11:29 10/03/21 11:30 Temperature 98.7 F Pulse Rate 79 77 78 Respiratory Rate 32 H 61 H 69 H Blood Pressure 139/75 148/74 H Pulse Oximetry 92 98 98 10/03/21 11:49 10/03/21 11:50 10/03/21 12:00 Temperature Pulse Rate 79 80 82 Respiratory Rate 63 H 46 H 62 H Blood Pressure 150/82 H 150/82 H 122/65 Pulse Oximetry 93 96 98 10/03/21 12:30 10/03/21 12:55 10/03/21 13:00 Temperature Pulse Rate 78 79 78 Respiratory Rate 38 H 40 H 41 H Blood Pressure 128/68 130/72 129/70 Pulse Oximetry 98 96 97 10/03/21 13:30 Temperature Pulse Rate 86 Respiratory Rate 38 H Blood Pressure Pulse Oximetry 97 MDM - SOB/Dyspnea Lab Data Result diagrams: 10/03/21 11:38 10/03/21 11:38 Labs: Lab Results 10/03/21 10/03/21 10/03/21 Range/Units 11:38 11:38 11:38 WBC 4.6 (4.5-11.0) X10^3/uL RBC 4.37 (4.0-5.2) X10^6/uL Hgb 13.9 (12.0-16.0) g/dL Hct 41.2 (36-46) % MCV 94.4 (80-100) fL MCH 31.7 (26-34) PG MCHC 33.6 (30-36) % RDW 13.7 (11.6-14.8) % Plt Count 246 (150-400) X10^3/uL Neut % (Auto) 69.9 (50-75) % Lymph % (Auto) 15.2 L (25-40) % [place] % (Auto) 14.1 H (3-14) % Eos % (Auto) 0.4 L (2-4) % Baso % (Auto) 0.4 (0-2) % Neut # (Auto) 3200 (8601-1697) /uL Lymph # (Auto) 700 L (6147-5928) /uL [place] # (Auto) 600 (0-900) /uL Eos # (Auto) 0 (0-450) /uL Baso # (Auto) 0 (0-100) /uL D-Dimer 459 H (<230) ng/mL ABG pH (7.35-7.45) ABG pCO2 (35-45) mmHg ABG pO2 (80-100) mmHg ABG HCO3 (22-26) mmol/L ABG Total CO2 (21-31) mmol/L ABG O2 Saturation (95-100) % ABG Base Excess (-2-2) mmol/L FiO2 Sodium 138 (137-145) mmol/L Potassium 3.9 (3.4-5.1) mmol/L Chloride 98 (98-107) mmol/L Carbon Dioxide 33 H (22-32) mmol/L BUN 8 (7-17) mg/dL Creatinine 0.71 (0.52-1.04) mg/dL Estimated GFR > 60.0 (>60) mL/min BUN/Creatinine Ratio 11.3 (6-22) Glucose 92 (70-100) mg/dL Lactate (0.7-2.1) mmol/L Calcium 8.8 (8.4-10.2) mg/dL Ferritin 866 H (6-137) ng/mL Total Bilirubin 0.4 (0.2-1.3) mg/dL AST 60 H (14-36) IU/L ALT 36 H (<35) IU/L Alkaline Phosphatase 117 (38-126) U/L Lactate Dehydrogenase 1358 H (313-618) U/L Total Creatine Kinase 85 (30-135) U/L CK-MB (CK-2) TNP CK-MB (CK-2) Rel Index TNP Troponin I < 0.012 (0.01-0.034) ng/mL C-Reactive Protein 18.5 H (<1.0) mg/dL NT-Pro-B Natriuret Pep 494 H (<125) pg/mL Total Protein 7.2 (6.3-8.2) g/dL Albumin 3.9 (3.5-5.0) g/dL Globulin 3.3 (1.7-4.1) g/dL Albumin/Globulin Ratio 1.2 (1.0-2.8) Procalcitonin 0.09 (<0.5) ng/mL TSH (0.47-4.68) uIU/mL SARS-CoV-2 (PCR) (Negative) 10/03/21 10/03/21 10/03/21 Range/Units 11:38 11:38 11:39 WBC (4.5-11.0) X10^3/uL RBC (4.0-5.2) X10^6/uL Hgb (12.0-16.0) g/dL Hct (36-46) % MCV (80-100) fL MCH (26-34) PG MCHC (30-36) % RDW (11.6-14.8) % Plt Count (150-400) X10^3/uL Neut % (Auto) (50-75) % Lymph % (Auto) (25-40) % [place] % (Auto) (3-14) % Eos % (Auto) (2-4) % Baso % (Auto) (0-2) % Neut # (Auto) (0847-3556) /uL Lymph # (Auto) (9222-2166) /uL [place] # (Auto) (0-900) /uL Eos # (Auto) (0-450) /uL Baso # (Auto) (0-100) /uL D-Dimer (<230) ng/mL ABG pH 7.46 H (7.35-7.45) ABG pCO2 40.8 (35-45) mmHg ABG pO2 75 L (80-100) mmHg ABG HCO3 29 H (22-26) mmol/L ABG Total CO2 30 (21-31) mmol/L ABG O2 Saturation 96 (95-100) % ABG Base Excess 5.0 H (-2-2) mmol/L FiO2 28 Sodium (137-145) mmol/L Potassium (3.4-5.1) mmol/L Chloride (98-107) mmol/L Carbon Dioxide (22-32) mmol/L BUN (7-17) mg/dL Creatinine (0.52-1.04) mg/dL Estimated GFR (>60) mL/min BUN/Creatinine Ratio (6-22) Glucose (70-100) mg/dL Lactate 1.5 (0.7-2.1) mmol/L Calcium (8.4-10.2) mg/dL Ferritin (6-137) ng/mL Total Bilirubin (0.2-1.3) mg/dL AST (14-36) IU/L ALT (<35) IU/L Alkaline Phosphatase (38-126) U/L Lactate Dehydrogenase (313-618) U/L Total Creatine Kinase (30-135) U/L CK-MB (CK-2) CK-MB (CK-2) Rel Index Troponin I (0.01-0.034) ng/mL C-Reactive Protein (<1.0) mg/dL NT-Pro-B Natriuret Pep (<125) pg/mL Total Protein (6.3-8.2) g/dL Albumin (3.5-5.0) g/dL Globulin (1.7-4.1) g/dL Albumin/Globulin Ratio (1.0-2.8) Procalcitonin (<0.5) ng/mL TSH 1.04 (0.47-4.68) uIU/mL SARS-CoV-2 (PCR) (Negative) 10/03/21 Range/Units 11:50 WBC (4.5-11.0) X10^3/uL RBC (4.0-5.2) X10^6/uL Hgb (12.0-16.0) g/dL Hct (36-46) % MCV (80-100) fL MCH (26-34) PG MCHC (30-36) % RDW (11.6-14.8) % Plt Count (150-400) X10^3/uL Neut % (Auto) (50-75) % Lymph % (Auto) (25-40) % [place] % (Auto) (3-14) % Eos % (Auto) (2-4) % Baso % (Auto) (0-2) % Neut # (Auto) (5953-3085) /uL Lymph # (Auto) (6564-2721) /uL [place] # (Auto) (0-900) /uL Eos # (Auto) (0-450) /uL Baso # (Auto) (0-100) /uL D-Dimer (<230) ng/mL ABG pH (7.35-7.45) ABG pCO2 (35-45) mmHg ABG pO2 (80-100) mmHg ABG HCO3 (22-26) mmol/L ABG Total CO2 (21-31) mmol/L ABG O2 Saturation (95-100) % ABG Base Excess (-2-2) mmol/L FiO2 Sodium (137-145) mmol/L Potassium (3.4-5.1) mmol/L Chloride (98-107) mmol/L Carbon Dioxide (22-32) mmol/L BUN (7-17) mg/dL Creatinine (0.52-1.04) mg/dL Estimated GFR (>60) mL/min BUN/Creatinine Ratio (6-22) Glucose (70-100) mg/dL Lactate (0.7-2.1) mmol/L Calcium (8.4-10.2) mg/dL Ferritin (6-137) ng/mL Total Bilirubin (0.2-1.3) mg/dL AST (14-36) IU/L ALT (<35) IU/L Alkaline Phosphatase (38-126) U/L Lactate Dehydrogenase (313-618) U/L Total Creatine Kinase (30-135) U/L CK-MB (CK-2) CK-MB (CK-2) Rel Index Troponin I (0.01-0.034) ng/mL C-Reactive Protein (<1.0) mg/dL NT-Pro-B Natriuret Pep (<125) pg/mL Total Protein (6.3-8.2) g/dL Albumin (3.5-5.0) g/dL Globulin (1.7-4.1) g/dL Albumin/Globulin Ratio (1.0-2.8) Procalcitonin (<0.5) ng/mL TSH (0.47-4.68) uIU/mL SARS-CoV-2 (PCR) Positive H (Negative) Point of Care Testing Test Results Negative Imaging Data Chest x-ray: Radiologist's Impression: [address] [address] XRay Report Signed Patient: Eliz Todd MR#: [id number] : 1970 Acct:[id number] Age/Sex: 51 / F Date of Service: 10/03/21 Loc: ED Accession Number: [id number] ?? Procedure: XR chest 1V Ordering Provider: Gabby Whitney D.O. PROCEDURE:? XR CHEST 1V ? INDICATIONS:? + COVID 10 days, chest pain ? TECHNIQUE:? One view of the chest was acquired.? ? COMPARISON:? [facility], CR, CHEST 2 VIEW, 06/24/2010, 11:12.? [facility], CT, CT HEAD/BRAIN WO CON, 10/03/2021, 12:03. ? FINDINGS:? ? Surgical changes and devices:? None.? ? Lungs and pleura:? Low lung volumes are noted. This causes a crowded appearance to the lung markings and limits evaluation.? Diffuse bilateral patchy interstitial infiltrates are seen. On this semiupright portable chest examination, no large pneumothorax or large pleural effusions are seen.? ? Mediastinum:? Mediastinal contours appear normal.? Heart size is normal.? ? Bones and chest wall:? No suspicious bony lesions.? Overlying soft tissues appear unremarkable.? IMPRESSION:? Patchy bilateral interstitial infiltrates are seen, which are consistent with the known clinical history of COVID pneumonia.? ? Dictated by: Eugenio Turner M.D. on 10/03/2021 at 12:07 ? ? Approved by: Eugenio Turner M.D. on 10/03/2021 at 12:07?? CT scan - head: Radiologist's Impression: Launch?[place] [address] CT Scan Report Signed Patient: Eliz Todd MR#: [id number] : 1970 Acct:[id number] Age/Sex: 51 / F Date of Service: 10/03/21 Loc: ED Accession Number: [id number] ?? Procedure: CT head/brain wo con Ordering Provider: Gabby Whitney D.O. PROCEDURE:? CT HEAD/BRAIN WO CON ? INDICATIONS:? confusion ? TECHNIQUE:? Noncontrast 4.5 mm thick angled axial sections acquired from the foramen magnum to the vertex, with coronal and sagittal reformats.? For radiation dose reduction, the following was used:? automated exposure control, adjustment of mA and/or kV according to patient size.? ? COMPARISON:? [facility], CR, XR CHEST 1V, 10/03/2021, 11:40.? [facility], CT, CT HEAD/BRAIN WO CON, 04/18/2019, 14:49. ? FINDINGS:? Image quality:? Mild streak artifact can be seen through the skull base. ? CSF spaces:? Basal cisterns are patent.? No extra-axial fluid collections.? Ventricles are normal in size and shape.? ? Brain:? No midline shift.? No intracranial masses or hemorrhage.? Zamora-white matter interface is normal.? ? Skull and face:? Calvarium and visualized facial bones are intact, without suspicious lesions.? ? Sinuses:? Visualized sinuses and mastoids are clear.? IMPRESSION:? No kristy acute abnormality can be seen on this limited noncontrast head CT. ? If there is strong clinical suspicion for an acute stroke, please consider a brain MRI for further evaluation, as it is more sensitive (assuming that there is no contraindication to MRI). ? Dictated by: Eugenio Turner M.D. on 10/03/2021 at 12:08 ? ? Approved by: Eugenio Turner M.D. on 10/03/2021 at 12:09?? ECG Data Attestation: I personally reviewed and interpreted this ECG as follows: Prior ECG tracings: not available for review Interpretation: Normal sinus rhythm rate 81 LA 142 QRS 84 QTC of 420. No acute ST elevation. Inconsistent changes in lateral leads so this may be motion artifact. RSR in lateral leads. No priors available. MDM Narrative Medical decision making narrative: This is a 51-year-old female comes emergency department approximately 10-12 days of COVID symptoms. Patient states she is vaccinated and boosted. Patient is is COVID positive here in the department. She has changes consistent with coronavirus on her chest x-ray in his quite tachypneic and was started on high-flow for work of breathing. She states she was 80% at times at home. She is confused with a history of bipolar but does not appear to be psychotic but more confused. Head CT was obtained which is negative. Inflammatory markers are consistent with worsening COVID infection. EKG does not show any acute changes. Patient was started on dexamethasone and remdesivir after discussion and agreement by the patient. She does not have any other focal neurologic changes. It was noted that patient has been on Valium in the past and her states she takes 60 mg total daily, this was clarified as 10 mg 1st thing in the morning 2 doses of 20 mg twice during the day and additional 10 mg in the evening. Unclear patient has missed any doses and this may be contributing to her mental status change. This was relayed to the hospitalist. Patient D-dimer was also noted to be elevated but at this time will defer on CT angio secondary to her COVID being the likely cause of her elevation. Patient accepted by Dr. Marcos for inpatient admission. Critical Care Time Critical Care Time Critical Care Time: Yes Total Critical Care Time: 45 Attestation: The high probability of a clinically significant, sudden or life threatening deterioration of the [pulm, cardiac] system(s) required my full and direct attention, intervention and personal management. The aggregate critical care time was [] minutes. This time is in addition to time spent performing reported procedures but includes the following: [x] Data Review and interpretation [x] Patient assessment and monitoring of vital signs [x] Documentation [x] Medication orders and management Discharge Plan Departure Patient Disposition: Admitted As Inpatient Clinical Impression: Pneumonia due to 2019 novel coronavirus, Confusion, Benzodiazepine dependence Admit Date/Time: 10/03/21 13:32 Admit Provider: Enoc Marcos
--- NOTE | 2021-10-03 11:39 | DI.RAD.S_ITS ---
PROCEDURE: XR CHEST 1V INDICATIONS: + COVID 10 days, chest pain TECHNIQUE: One view of the chest was acquired. COMPARISON: [facility], CR, CHEST 2 VIEW, 06/24/2010, 11:12. [facility], CT, CT HEAD/BRAIN WO CON, 10/03/2021, 12:03. FINDINGS: Surgical changes and devices: None. Lungs and pleura: Low lung volumes are noted. This causes a crowded appearance to the lung markings and limits evaluation. Diffuse bilateral patchy interstitial infiltrates are seen. On this semiupright portable chest examination, no large pneumothorax or large pleural effusions are seen. Mediastinum: Mediastinal contours appear normal. Heart size is normal. Bones and chest wall: No suspicious bony lesions. Overlying soft tissues appear unremarkable. IMPRESSION: Patchy bilateral interstitial infiltrates are seen, which are consistent with the known clinical history of COVID pneumonia. Dictated by: Eugenio Turner M.D. on 10/03/2021 at 12:07 Approved by: Eugenio Turner M.D. on 10/03/2021 at 12:07
[2021-10-03 11:48] LABS: Add Manual Diff / Slide Review NO; Basophils Absolute Auto 0 /uL (0-100); Basophils Percent Auto 0.4 % (0-2); Eosinophils Absolute Auto 0 /uL (0-450); Eosinophils Percent Auto 0.4 % (2-4); Hematocrit 41.2 % (36-46); Hemoglobin 13.9 g/dL (12.0-16.0); Lymphocytes Absolute Auto 700 /uL (1100-4500); Lymphocytes Percent Auto 15.2 % (25-40); Mean Corpuscular HGB Conc 33.6 % (30-36); Mean Corpuscular Hemoglobin 31.7 PG (26-34); Mean Corpuscular Volume 94.4 fL (80-100); Monocytes Absolute Auto 600 /uL (0-900); Monocytes Percent Auto 14.1 % (3-14); Neutrophils Absolute Auto 3200 /uL (1500-7000); Neutrophils Percent Auto 69.9 % (50-75); Platelet Count 246 X10^3/uL (150-400); Red Blood Cell Count 4.37 X10^6/uL (4.0-5.2); Red Cell Distribution Width 13.7 % (11.6-14.8); White Blood Cell Count 4.6 X10^3/uL (4.5-11.0)
--- NOTE | 2021-10-03 11:56 | DI.CT.S_ITS ---
PROCEDURE: CT HEAD/BRAIN WO CON INDICATIONS: confusion TECHNIQUE: Noncontrast 4.5 mm thick angled axial sections acquired from the foramen magnum to the vertex, with coronal and sagittal reformats. For radiation dose reduction, the following was used: automated exposure control, adjustment of mA and/or kV according to patient size. COMPARISON: [facility], CR, XR CHEST 1V, 10/03/2021, 11:40. [facility], CT, CT HEAD/BRAIN WO CON, 04/18/2019, 14:49. FINDINGS: Image quality: Mild streak artifact can be seen through the skull base. CSF spaces: Basal cisterns are patent. No extra-axial fluid collections. Ventricles are normal in size and shape. Brain: No midline shift. No intracranial masses or hemorrhage. Zamora-white matter interface is normal. Skull and face: Calvarium and visualized facial bones are intact, without suspicious lesions. Sinuses: Visualized sinuses and mastoids are clear. IMPRESSION: No kristy acute abnormality can be seen on this limited noncontrast head CT. If there is strong clinical suspicion for an acute stroke, please consider a brain MRI for further evaluation, as it is more sensitive (assuming that there is no contraindication to MRI). Dictated by: Eugenio Turner M.D. on 10/03/2021 at 12:08 Approved by: Eugenio Turner M.D. on 10/03/2021 at 12:09
[2021-10-03] MEDS: REMDESIVIR 200 MG in SODIUM CHLORIDE 0.9% 210 ML 250 ML IV (11:58)
[2021-10-03] MEDS: DEXAMETHASONE 10 MG/ML VIAL 6 MG IV (11:58)
[2021-10-03 11:59] LABS: D Dimer 459 ng/mL (<230)
[2021-10-03 12:01] LABS: Lactate (Lactic Acid) 1.5 mmol/L (0.7-2.1)
[2021-10-03 12:03] LABS: Alanine Aminotransferase 36 IU/L (<35); Albumin 3.9 g/dL (3.5-5.0); Albumin Globulin Ratio 1.2 (1.0-2.8); Alkaline Phosphatase 117 U/L (38-126); Aspartate Aminotransferase 60 IU/L (14-36); BUN Creatinine Ratio 11.3 (6-22); Bilirubin Total 0.4 mg/dL (0.2-1.3); Blood Urea Nitrogen 8 mg/dL (7-17); Calcium 8.8 mg/dL (8.4-10.2); Carbon Dioxide 33 mmol/L (22-32); Chloride 98 mmol/L (98-107); Creatine Kinase 85 U/L (30-135); Estimated Glomerular Filt Rate > 60.0 mL/min (>60); Globulin 3.3 g/dL (1.7-4.1); Glucose 92 mg/dL (70-100); HEMOLYSIS < 15 (0-50); Lactate Dehydrogenase 1358 U/L (313-618); Potassium 3.9 mmol/L (3.4-5.1); Sodium 138 mmol/L (137-145); Total Protein 7.2 g/dL (6.3-8.2)
--- NOTE | 2021-10-03 12:11 | RT ---
Pt sob and MD at bedside. Pt placed on HHFNC with relief noted, and sophia well.
[2021-10-03 12:12] LABS: NT-proBNP (BNP-Adult 18+) 494 pg/mL (<125); Troponin I < 0.012 ng/mL (0.01-0.034)
[2021-10-03 12:13] LABS: COVID19 -Nasal RAPID POSITIVE (Negative)
[2021-10-03 12:15] LABS: HCO3 ABG 29 mmol/L (22-26); Oxygen Saturation ABG 96 % (95-100); PCO2 ABG 40.8 mmHg (35-45); PO2 ABG 75 mmHg (80-100); TCO2 ABG 30 mmol/L (21-31); pH ABG 7.46 (7.35-7.45)
[2021-10-03 12:16] LABS: Fractionated Inspired Oxygen 28
[2021-10-03 12:17] LABS: Procalcitonin 0.09 ng/mL (<0.5)
[2021-10-03 12:19] LABS: C-Reactive Protein Quant 18.5 mg/dL (<1.0)
[2021-10-03 12:35] LABS: Ferritin 866 ng/mL (6-137)
--- NOTE | 2021-10-03 12:59 | CM.MNRNOTE ---
1140: Pt arrived to rm 4, tachypniec with RR 70's, abdominal breathing, RA SPO2 85% supine. Placed on 2L with improvement to 98%. Confused, unable to answer simple questions. RT called for ABG, pCO2 40. appears pt is compensating with her rate of breathing. IV placed x 2 with BC x 2. placed on heated high flow NC 40L and 50%. tolerating well. Pt receiving Dexamethasone and Remdesivir. Taken to and from CT without issue. *Pt's Avni states pt usually takes 60mg Valium daily. 10mg morning, 20mg mid morning, 20mg at dinner, and 10mg at bedtime. Pt has not taken Valium in a few days since she has been sick. Also had residual O2 tank at home from after her mother last year and has been using 2-3L at home. 1315: RR improved from 70's to 36. appears more comfortable on HHFNC. Resting in bed. Tolerating water appropriately. Appears to be less confused than on arrival.
[2021-10-03 14:04] LABS: UR Morphine/Opiate cutoff 300 Negative (Negative); Ur Creatinine Normal (Normal); Ur Specific Gravity Normal (Normal); Urine Amphetamines Negative (Negative); Urine Barbiturates Negative (Negative); Urine Benzodiazepines Positive (Negative); Urine Cocaine Negative (Negative); Urine MDMA Negative (Negative); Urine Methadone Negative (Negative); Urine Methamphetamines Negative (Negative); Urine Oxycodone Negative (Negative); Urine Phencyclidine Negative (Negative); Urine Tetrahydrocannabinol Negative (Negative); Urine Tricyclic Antidepressant Negative (Negative); Urine pH Normal (Normal)
[2021-10-03 14:36] LABS: RBC Urine 0-1/HPF (0-5/HPF); Squamous Epithelial Cell Urine 10-30 /HPF (0-5/HPF); WBC Urine 0-1/HPF (0-5/HPF)
[2021-10-03 14:37] LABS: Bacteria Urine Many (>30); Culture Indicated Urine Cult Not Indicated
--- NOTE | 2021-10-03 15:19 | P.HP_ITS ---
History of Present Illness History of Present Illness Date Patient Seen: 10/03/21 Time Patient Seen: 15:00 Chief complaint: covid +, high fever, oxygen goes to 80 Narrative: 51-year-old female with history of bipolar disorder, benzodiazepine dependency, agoraphobia, hypothyroidism presented to the emergency department with respiratory symptoms and history of recent positive COVID. Patient is reportedly faxed and boosted for coronavirus. Reportedly symptoms started 10 days ago. She was noted to be tachypneic with respiratory rate in the 30s to 50 per minute in the ED. Her O2 sat was 92% on room air. She reportedly had O2 sats in the 80s at home and was using O2 that was left over from a family member. Later in the ED she spiked a temp to 103.2. She was noted to be quite confused. Chest x-ray with diffuse bilateral infiltrates typical of COVID. He ad CT negative. She had normal CBC and renal panel, mildly elevated LFTs, D- dimer 459, ferritin 866, LDH 1358, C-reactive protein 18.5, and BNP 494. On ABG pH 7.46, pCO2 40.8, PO2 75 on 28% FiO2. COVID PCR positive in ED. She got remdesivir and dexamethasone as initial treatment in the ED. She was started on heated high-flow nasal cannula to help with work of breathing. She was admitted to the intensive care unit for treatment of respiratory failure associated with COVID pneumonia. Patient History Medical History Hypothyroidism Laly No significant medical problems Surgical History History of third molar tooth extraction Status post delivery (01/07/06) Family & Social History Social History: household members spouse Prior Living Arrangements House Safety & Behavioral: Feels Safe in Current Yes Environment Been Physically Hurt or No Threatened By a Person Suicidal Ideation Description None Suicide Plan Description No Plan Tobacco & Substance use: Tobacco type cigarettes Smoking Status Current every day smoker Smoking packs per day 1 alcohol intake former alcohol intake frequency other Substance Use Type does not use Meds Home Medications and Allergies Home Medications Medication Instructions Recorded Confirmed Type levonorgestrel 20 mcg/24 hours (7 52 mg IU #0 06/26/08/09/21 History yrs) 52 mg intrauterine device (Mirena) levothyroxine 25 mcg tablet 75 mcg PO DAILY #60 tab 06/14/19 10/03/21 History multivitamin 1 tab PO DAILY 07/19/19 10/03/21 History famotidine 20 mg tablet (Pepcid) 20 mg PO DAILY 09/10/19 10/03/21 History L-theanine 200 mg PO BID 05/15/20 10/03/21 History methocarbamol 500 mg tablet 500 - 1,000 mg PO QID tab 08/25/20 10/03/21 History duloxetine 40 mg capsule,delayed 40 mg PO DAILY #90 cap 06/11/21 10/03/21 Rx release tramadol 50 mg tablet 50 mg PO Q6H PRN tab 08/09/21 10/03/21 History aripiprazole 300 mg intramuscular 300 mg IM QMONTH #1 ea 09/24/21 10/03/21 Rx suspension,extended release (Abilify Maintena) aripiprazole 5 mg tablet 7.5 mg PO BEDTIME 10/03/21 10/03/21 History diazepam 10 mg tablet 30 mg PO BID 10/03/21 10/03/21 History propranolol 40 mg tablet 40 mg PO BID 10/03/21 10/03/21 History Allergies Allergy/AdvReac Type Severity Reaction Status Date / Time monosodium glutamate Allergy Severe Anaphylaxis Verified 08/09/21 15:57 paliperidone Allergy Intermediate Rash/hives Verified 08/09/21 15:57 codeine [CODEINE] Allergy Unknown Verified 08/09/21 15:57 sertraline [From ZOLOFT] Allergy Unknown Verified 08/09/21 15:57 Review of Systems Review of Systems Narrative: Complete 10 point ROS otherwise negative with limitations of altered patient mental status. Exam Vital Signs (past 8 hours): - 10/03/21 11:04 10/03/21 11:29 10/03/21 11:30 Temperature 98.7 F Pulse Rate 79 77 78 Respiratory Rate 32 H 61 H 69 H Blood Pressure 139/75 148/74 H Pulse Oximetry 92 98 98 10/03/21 11:49 10/03/21 11:50 10/03/21 12:00 Temperature Pulse Rate 79 80 82 Respiratory Rate 63 H 46 H 62 H Blood Pressure 150/82 H 150/82 H 122/65 Pulse Oximetry 93 96 98 10/03/21 12:30 10/03/21 12:55 10/03/21 13:00 Temperature Pulse Rate 78 79 78 Respiratory Rate 38 H 40 H 41 H Blood Pressure 128/68 130/72 129/70 Pulse Oximetry 98 96 97 10/03/21 13:30 10/03/21 13:37 10/03/21 14:00 Temperature Pulse Rate 86 82 87 Respiratory Rate 38 H 40 H Blood Pressure 134/69 Pulse Oximetry 97 96 98 10/03/21 14:01 Temperature 103.2 F H Pulse Rate 86 Respiratory Rate Blood Pressure 142/75 H Pulse Oximetry 93 Oxygen Delivery Method Heated High Flow Oxygen Flow Rate 40 Narrative Exam Narrative: General: Patient is alert but confused and removing lines HEENT: Nontraumatic, pupils 3 mm and equal and reactive, anicteric Neck: No lymphadenopathy Lungs: Able to speak short sentences, Clear to auscultation Heart: Normal S1 and S2, regular rate and rhythm, no murmur Abdomen: Soft, nontender, no HSM Extremities: No edema Neurological: Oriented to person only, no focal weakness Objective Labs Result Diagrams: 10/03/21 11:38 10/03/21 11:38 Labs: Laboratory Results - last 24 hr 10/03/21 10/03/21 10/03/21 11:38 11:38 11:38 WBC 4.6 RBC 4.37 Hgb 13.9 Hct 41.2 MCV 94.4 MCH 31.7 MCHC 33.6 RDW 13.7 Plt Count 246 Neut % (Auto) 69.9 Lymph % (Auto) 15.2 L [place] % (Auto) 14.1 H Eos % (Auto) 0.4 L Baso % (Auto) 0.4 Neut # (Auto) 3200 Lymph # (Auto) 700 L [place] # (Auto) 600 Eos # (Auto) 0 Baso # (Auto) 0 D-Dimer 459 H ABG pH ABG pCO2 ABG pO2 ABG HCO3 ABG Total CO2 ABG O2 Saturation ABG Base Excess FiO2 Sodium 138 Potassium 3.9 Chloride 98 Carbon Dioxide 33 H BUN 8 Creatinine 0.71 Estimated GFR > 60.0 BUN/Creatinine Ratio 11.3 Glucose 92 Lactate Calcium 8.8 Ferritin 866 H Total Bilirubin 0.4 AST 60 H ALT 36 H Alkaline Phosphatase 117 Lactate Dehydrogenase 1358 H Total Creatine Kinase 85 CK-MB (CK-2) TNP CK-MB (CK-2) Rel Index TNP Troponin I < 0.012 C-Reactive Protein 18.5 H NT-Pro-B Natriuret Pep 494 H Total Protein 7.2 Albumin 3.9 Globulin 3.3 Albumin/Globulin Ratio 1.2 Procalcitonin 0.09 Urine RBC Urine WBC Ur Squamous Epith Cells Urine Bacteria Ur Culture Indicated? U Opiates 300ng/mL cut Ur Oxycodone Screen Urine Methadone Screen Ur Barbiturates Screen U Tricyclic Antidepress Ur Phencyclidine Scrn Ur Amphetamines Screen U Methamphetamines Scrn Ur MDMA Scrn (Ecstasy) U Benzodiazepines Scrn Urine Cocaine Screen U Marijuana (THC) Screen SARS-CoV-2 (PCR) 10/03/21 10/03/21 10/03/21 11:38 11:39 11:50 WBC RBC Hgb Hct MCV MCH MCHC RDW Plt Count Neut % (Auto) Lymph % (Auto) [place] % (Auto) Eos % (Auto) Baso % (Auto) Neut # (Auto) Lymph # (Auto) [place] # (Auto) Eos # (Auto) Baso # (Auto) D-Dimer ABG pH 7.46 H ABG pCO2 40.8 ABG pO2 75 L ABG HCO3 29 H ABG Total CO2 30 ABG O2 Saturation 96 ABG Base Excess 5.0 H FiO2 28 Sodium Potassium Chloride Carbon Dioxide BUN Creatinine Estimated GFR BUN/Creatinine Ratio Glucose Lactate 1.5 Calcium Ferritin Total Bilirubin AST ALT Alkaline Phosphatase Lactate Dehydrogenase Total Creatine Kinase CK-MB (CK-2) CK-MB (CK-2) Rel Index Troponin I C-Reactive Protein NT-Pro-B Natriuret Pep Total Protein Albumin Globulin Albumin/Globulin Ratio Procalcitonin Urine RBC Urine WBC Ur Squamous Epith Cells Urine Bacteria Ur Culture Indicated? U Opiates 300ng/mL cut Ur Oxycodone Screen Urine Methadone Screen Ur Barbiturates Screen U Tricyclic Antidepress Ur Phencyclidine Scrn Ur Amphetamines Screen U Methamphetamines Scrn Ur MDMA Scrn (Ecstasy) U Benzodiazepines Scrn Urine Cocaine Screen U Marijuana (THC) Screen SARS-CoV-2 (PCR) Positive H 10/03/21 10/03/21 13:38 13:38 WBC RBC Hgb Hct MCV MCH MCHC RDW Plt Count Neut % (Auto) Lymph % (Auto) [place] % (Auto) Eos % (Auto) Baso % (Auto) Neut # (Auto) Lymph # (Auto) [place] # (Auto) Eos # (Auto) Baso # (Auto) D-Dimer ABG pH ABG pCO2 ABG pO2 ABG HCO3 ABG Total CO2 ABG O2 Saturation ABG Base Excess FiO2 Sodium Potassium Chloride Carbon Dioxide BUN Creatinine Estimated GFR BUN/Creatinine Ratio Glucose Lactate Calcium Ferritin Total Bilirubin AST ALT Alkaline Phosphatase Lactate Dehydrogenase Total Creatine Kinase CK-MB (CK-2) CK-MB (CK-2) Rel Index Troponin I C-Reactive Protein NT-Pro-B Natriuret Pep Total Protein Albumin Globulin Albumin/Globulin Ratio Procalcitonin Urine RBC 0-1/hpf Urine WBC 0-1/hpf Ur Squamous Epith Cells 10-30 /hpf H Urine Bacteria Many (>30) H Ur Culture Indicated? Cult not indicated U Opiates 300ng/mL cut Negative Ur Oxycodone Screen Negative Urine Methadone Screen Negative Ur Barbiturates Screen Negative U Tricyclic Antidepress Negative Ur Phencyclidine Scrn Negative Ur Amphetamines Screen Negative U Methamphetamines Scrn Negative Ur MDMA Scrn (Ecstasy) Negative U Benzodiazepines Scrn Positive H Urine Cocaine Screen Negative U Marijuana (THC) Screen Negative SARS-CoV-2 (PCR) Assessment & Plan Assessment & Plan narrative: 1. Acute hypoxic respiratory failure -P/F < 300, RR 40-50 -support with heated high-flow, currently 40L/40% 2. COVID pneumonia with respiratory failure -remdesivir 200 mg IV x1, then 100 mg IV daily x4 days -dexamethasone 6 mg IV/p.o. for up to 10 days -telemetry -enoxaparin 40 mg subQ daily 3. Acute metabolic encephalopathy -ddx fever, hypoxia, benzodiazepine withdrawal -resume patient's p.o. psychiatric medications -use Precedex as needed, ROSITA - 1 -treat fever with Tylenol 4. Bipolar disorder, benzodiazepine dependence -continue patient's Abilify, duloxetine, propranolol, diazepam (takes 30 mg b.i.d.) DPOA: Spouse, [place] Admission status: Intensive care unit Total ICU management of up to 60 minutes during course of today's encounter. I have spoken with tele ICU who will be assisting with patient management. Time Spent With Patient Critical Care time: I spent a total of [] minutes of critical care time on this patient's care today; this time is exclusive of procedural time. Quality VTE Deep Vein Thrombosis/Pulmonary Embolism Present on Admission: No
--- NOTE | 2021-10-03 15:35 | PM.CN.EICU ---
History of Present Illness Consult details Chief complaint: covid +, high fever, oxygen goes to 80 :: This patient was seen via real time interactive two-way audiovisual telecommunication. elvi confused removing IVS and her o2 PFSH Medical History Hypothyroidism Laly No significant medical problems Surgical History History of third molar tooth extraction Status post delivery (01/07/06) Social History household members: spouse Smoking Status: Current every day smoker alcohol intake: former Current Medications Current Medications Medications: Home Medications levonorgestrel 20 mcg/24 hours (7 yrs) 52 mg intrauterine device (Mirena) 52 mg IU #0 06/26/12 [History Confirmed 08/09/21] levothyroxine 25 mcg tablet 75 mcg PO DAILY #60 tab 06/14/19 [History Confirmed 10/03/21] multivitamin 1 tab PO DAILY 07/19/19 [History Confirmed 10/03/21] famotidine 20 mg tablet (Pepcid) 20 mg PO DAILY 09/10/19 [History Confirmed 10/03/21] L-theanine 200 mg PO BID 05/15/20 [History Confirmed 10/03/21] methocarbamol 500 mg tablet 500 - 1,000 mg PO QID tab 08/25/20 [History Confirmed 10/03/21] duloxetine 40 mg capsule,delayed release 40 mg PO DAILY #90 cap 06/11/21 [Rx Confirmed 10/03/21] tramadol 50 mg tablet 50 mg PO Q6H PRN tab 08/09/21 [History Confirmed 10/03/21] aripiprazole 300 mg intramuscular suspension,extended release (Abilifcat Maintena) 300 mg IM QMONTH #1 ea 09/24/21 [Rx Confirmed 10/03/21] aripiprazole 5 mg tablet 7.5 mg PO BEDTIME 10/03/21 [History Confirmed 10/03/21] diazepam 10 mg tablet 30 mg PO BID 10/03/21 [History Confirmed 10/03/21] propranolol 40 mg tablet 40 mg PO BID 10/03/21 [History Confirmed 10/03/21] Exam Vital Signs (past 8 hours): - 10/03/21 11:04 10/03/21 11:29 10/03/21 11:30 Temperature 98.7 F Pulse Rate 79 77 78 Respiratory Rate 32 H 61 H 69 H Blood Pressure 139/75 148/74 H Pulse Oximetry 92 98 98 10/03/21 11:49 10/03/21 11:50 10/03/21 12:00 Temperature Pulse Rate 79 80 82 Respiratory Rate 63 H 46 H 62 H Blood Pressure 150/82 H 150/82 H 122/65 Pulse Oximetry 93 96 98 10/03/21 12:30 10/03/21 12:55 10/03/21 13:00 Temperature Pulse Rate 78 79 78 Respiratory Rate 38 H 40 H 41 H Blood Pressure 128/68 130/72 129/70 Pulse Oximetry 98 96 97 10/03/21 13:30 10/03/21 13:37 10/03/21 14:00 Temperature Pulse Rate 86 82 87 Respiratory Rate 38 H 40 H Blood Pressure 134/69 Pulse Oximetry 97 96 98 10/03/21 14:01 Temperature 103.2 F H Pulse Rate 86 Respiratory Rate Blood Pressure 142/75 H Pulse Oximetry 93 Oxygen Delivery Method Heated High Flow Oxygen Flow Rate 40 Objective Labs Result Diagrams: 10/03/21 11:38 10/03/21 11:38 Labs: Laboratory Results - last 24 hr 10/03/21 10/03/21 10/03/21 11:38 11:38 11:38 WBC 4.6 RBC 4.37 Hgb 13.9 Hct 41.2 MCV 94.4 MCH 31.7 MCHC 33.6 RDW 13.7 Plt Count 246 Neut % (Auto) 69.9 Lymph % (Auto) 15.2 L [place] % (Auto) 14.1 H Eos % (Auto) 0.4 L Baso % (Auto) 0.4 Neut # (Auto) 3200 Lymph # (Auto) 700 L [place] # (Auto) 600 Eos # (Auto) 0 Baso # (Auto) 0 D-Dimer 459 H ABG pH ABG pCO2 ABG pO2 ABG HCO3 ABG Total CO2 ABG O2 Saturation ABG Base Excess FiO2 Sodium 138 Potassium 3.9 Chloride 98 Carbon Dioxide 33 H BUN 8 Creatinine 0.71 Estimated GFR > 60.0 BUN/Creatinine Ratio 11.3 Glucose 92 Lactate Calcium 8.8 Ferritin 866 H Total Bilirubin 0.4 AST 60 H ALT 36 H Alkaline Phosphatase 117 Lactate Dehydrogenase 1358 H Total Creatine Kinase 85 CK-MB (CK-2) TNP CK-MB (CK-2) Rel Index TNP Troponin I < 0.012 C-Reactive Protein 18.5 H NT-Pro-B Natriuret Pep 494 H Total Protein 7.2 Albumin 3.9 Globulin 3.3 Albumin/Globulin Ratio 1.2 Procalcitonin 0.09 Urine RBC Urine WBC Ur Squamous Epith Cells Urine Bacteria Ur Culture Indicated? U Opiates 300ng/mL cut Ur Oxycodone Screen Urine Methadone Screen Ur Barbiturates Screen U Tricyclic Antidepress Ur Phencyclidine Scrn Ur Amphetamines Screen U Methamphetamines Scrn Ur MDMA Scrn (Ecstasy) U Benzodiazepines Scrn Urine Cocaine Screen U Marijuana (THC) Screen SARS-CoV-2 (PCR) 10/03/21 10/03/21 10/03/21 11:38 11:39 11:50 WBC RBC Hgb Hct MCV MCH MCHC RDW Plt Count Neut % (Auto) Lymph % (Auto) [place] % (Auto) Eos % (Auto) Baso % (Auto) Neut # (Auto) Lymph # (Auto) [place] # (Auto) Eos # (Auto) Baso # (Auto) D-Dimer ABG pH 7.46 H ABG pCO2 40.8 ABG pO2 75 L ABG HCO3 29 H ABG Total CO2 30 ABG O2 Saturation 96 ABG Base Excess 5.0 H FiO2 28 Sodium Potassium Chloride Carbon Dioxide BUN Creatinine Estimated GFR BUN/Creatinine Ratio Glucose Lactate 1.5 Calcium Ferritin Total Bilirubin AST ALT Alkaline Phosphatase Lactate Dehydrogenase Total Creatine Kinase CK-MB (CK-2) CK-MB (CK-2) Rel Index Troponin I C-Reactive Protein NT-Pro-B Natriuret Pep Total Protein Albumin Globulin Albumin/Globulin Ratio Procalcitonin Urine RBC Urine WBC Ur Squamous Epith Cells Urine Bacteria Ur Culture Indicated? U Opiates 300ng/mL cut Ur Oxycodone Screen Urine Methadone Screen Ur Barbiturates Screen U Tricyclic Antidepress Ur Phencyclidine Scrn Ur Amphetamines Screen U Methamphetamines Scrn Ur MDMA Scrn (Ecstasy) U Benzodiazepines Scrn Urine Cocaine Screen U Marijuana (THC) Screen SARS-CoV-2 (PCR) Positive H 10/03/21 10/03/21 13:38 13:38 WBC RBC Hgb Hct MCV MCH MCHC RDW Plt Count Neut % (Auto) Lymph % (Auto) [place] % (Auto) Eos % (Auto) Baso % (Auto) Neut # (Auto) Lymph # (Auto) [place] # (Auto) Eos # (Auto) Baso # (Auto) D-Dimer ABG pH ABG pCO2 ABG pO2 ABG HCO3 ABG Total CO2 ABG O2 Saturation ABG Base Excess FiO2 Sodium Potassium Chloride Carbon Dioxide BUN Creatinine Estimated GFR BUN/Creatinine Ratio Glucose Lactate Calcium Ferritin Total Bilirubin AST ALT Alkaline Phosphatase Lactate Dehydrogenase Total Creatine Kinase CK-MB (CK-2) CK-MB (CK-2) Rel Index Troponin I C-Reactive Protein NT-Pro-B Natriuret Pep Total Protein Albumin Globulin Albumin/Globulin Ratio Procalcitonin Urine RBC 0-1/hpf Urine WBC 0-1/hpf Ur Squamous Epith Cells 10-30 /hpf H Urine Bacteria Many (>30) H Ur Culture Indicated? Cult not indicated U Opiates 300ng/mL cut Negative Ur Oxycodone Screen Negative Urine Methadone Screen Negative Ur Barbiturates Screen Negative U Tricyclic Antidepress Negative Ur Phencyclidine Scrn Negative Ur Amphetamines Screen Negative U Methamphetamines Scrn Negative Ur MDMA Scrn (Ecstasy) Negative U Benzodiazepines Scrn Positive H Urine Cocaine Screen Negative U Marijuana (THC) Screen Negative SARS-CoV-2 (PCR) Assessment & Plan Assessment & Plan narrative: elvi seen and discussed with [facility] provider and nurse chart/labs/imaging reviewed 51 year old female wiith acute resp failure 2/2 to covid pna ams likely 2/2 to coivd and hypoxia vs other currently afebril,e HD stable, confused hypoxia requriing 40/40 of heated high flow labs significant for hypxoa on abg elevated inflamatory markers CT head -ve cxr with diffuse b/l infiltraes plan -neurochecks/seizure precautions -minimize benzo use -suggest small doses of ativan prn -start precedex -start decadron -start remdesevir -continue home meds -mri head if able -neuro eval if possible -continue high flow as tolerated, can use bipap of work of breathign is further increased -intubation if condition worses is warranted -rocpphin for possible uti -keep glucose 140-180s -gi/dct ppx -goals of care to be discussed with pts husbands, prognosis guarded -please call eICU if condition changes Time Spent With Patient Critical Care time: I spent a total of [] minutes of critical care time on this patient's care today; this time is exclusive of procedural time.
[2021-10-03] MEDS: diazePAM 5 MG TABLET 30 MG PO (15:36)
[2021-10-03] MEDS: dexmedeTOMIDine in 0.9 % NaCL 400 MCG/100 ML PLAST..BAG IV (15:39)
[2021-10-03 16:02] LABS: TSH w/ Reflex to FT4 1.04 uIU/mL (0.47-4.68)
[2021-10-03] MEDS: cefTRIAXone 1,000 MG in SODIUM CHLORIDE 0.9% 100 ML 200 ML IV (16:03)
[2021-10-03] MEDS: TRAMADOL 50 MG TABLET PO ×2 (16:42→20:07)
--- NOTE | 2021-10-03 17:01 | PC.NURSE ---
Dayshift note: Pt arrived via gurney from ED, able to follow direction enough to walk to bed with assistance, connected to monitoring equipment RT at bedside placed pt on HHF 40L/40%, SpO2 91-98%. Pt unable to make sentences that make sense due to confusion, stated over the phone that pt is not this confused at baseline, however she does have some confusion. Pt medication req completed, pt is very agitated pulling at HHF and all other lines, administered home dose of valium as ordered and started pt on Precedex gtt (as recommended pt tele board of education secretary). Pt continues to require 1:1 due to attempting to remove lines and repeated attempts to get out of bed. Bed low and locked, call light within reach, will continue to treat and monitor as ordered.
[2021-10-03] MEDS: SODIUM CHLORIDE 0.9% 1,000 ML 40 ML IV (18:03)
[2021-10-03] MEDS: dexmedeTOMIDine in 0.9 % NaCL 400 MCG/100 ML PLAST..BAG 6.124 MCG IV (18:03)
[2021-10-03] MEDS: PROPRANOLOL 40 MG TABLET PO (20:07)
[2021-10-03] MEDS: ARIPiprazole 10 MG TABLET 7.5 MG PO (20:07)
[2021-10-03] MEDS: diazePAM 5 MG TABLET 10 MG PO (20:08)
--- NOTE | 2021-10-03 20:47 | PM.ICURNDS ---
- Date Patient Seen: 10/03/21 Time Patient Seen: 20:47 :: This patient was seen via real time interactive two-way audiovisual telecommunication. Note: no major changes in mental status since admission. doing well with precedex. check ammonia level 0suggest mri head and neurology eval in am consider LP if no improvment
[2021-10-03 22:54] LABS: Ammonia (NH3) < 9 umol/L (9-30)
[2021-10-04] VITALS (41 sets, daily range): BP systolic 124–171; BP diastolic 64–86; PULSE 51–75; RESP 18–53; TEMP 36.4–36.6; O2SAT 88–98
[2021-10-04] MEDS: dexmedeTOMIDine in 0.9 % NaCL 400 MCG/100 ML PLAST..BAG 12.938 MCG IV ×2 (03:00→04:33)
[2021-10-04] MEDS: LEVOTHYROXINE 75 MCG TABLET PO (06:15)
[2021-10-04 07:10] LABS: Add Manual Diff / Slide Review NO; Basophils Absolute Auto 0 /uL (0-100); Basophils Percent Auto 0.1 % (0-2); Eosinophils Absolute Auto 0 /uL (0-450); Hematocrit 37.7 % (36-46); Hemoglobin 12.5 g/dL (12.0-16.0); Lymphocytes Absolute Auto 700 /uL (1100-4500); Lymphocytes Percent Auto 22.6 % (25-40); Mean Corpuscular HGB Conc 33.2 % (30-36); Mean Corpuscular Hemoglobin 31.3 PG (26-34); Mean Corpuscular Volume 94.1 fL (80-100); Monocytes Absolute Auto 700 /uL (0-900); Monocytes Percent Auto 22.1 % (3-14); Neutrophils Absolute Auto 1800 /uL (1500-7000); Neutrophils Percent Auto 55.2 % (50-75); Platelet Count 252 X10^3/uL (150-400); Red Blood Cell Count 4.01 X10^6/uL (4.0-5.2); Red Cell Distribution Width 13.7 % (11.6-14.8); White Blood Cell Count 3.3 X10^3/uL (4.5-11.0)
[2021-10-04 07:14] LABS: Alanine Aminotransferase 35 IU/L (<35); Albumin 3.2 g/dL (3.5-5.0); Albumin Globulin Ratio 1.2 (1.0-2.8); Alkaline Phosphatase 92 U/L (38-126); Aspartate Aminotransferase 57 IU/L (14-36); Bilirubin Total 0.5 mg/dL (0.2-1.3); Blood Urea Nitrogen 9 mg/dL (7-17); Calcium 8.1 mg/dL (8.4-10.2); Carbon Dioxide 23 mmol/L (22-32); Chloride 108 mmol/L (98-107); Estimated Glomerular Filt Rate > 60.0 mL/min (>60); Globulin 2.7 g/dL (1.7-4.1); Glucose 114 mg/dL (70-100); HEMOLYSIS < 15 (0-50); Potassium 3.5 mmol/L (3.4-5.1); Sodium 138 mmol/L (137-145); Total Protein 5.9 g/dL (6.3-8.2)
[2021-10-04] MEDS: MAGNESIUM HYDROXIDE 30 ML UDC PO ×2 (08:02→21:16)
[2021-10-04] MEDS: DOCUSATE 100 MG CAPSULE PO ×2 (08:02→21:15)
[2021-10-04] MEDS: PROPRANOLOL 40 MG TABLET PO ×2 (08:03→21:15)
[2021-10-04] MEDS: TRAMADOL 50 MG TABLET PO ×4 (08:04→21:15)
[2021-10-04] MEDS: diazePAM 5 MG TABLET 10 MG PO ×2 (08:04→21:15)
[2021-10-04] MEDS: DEXAMETHASONE 10 MG/ML VIAL 6 MG IV (08:06)
[2021-10-04] MEDS: ENOXAPARIN 40 MG/0.4 ML SYRINGE SUBCUT ×2 (08:07→21:16)
[2021-10-04] MEDS: NICOTINE 21 MG PATCH TOP (08:07)
[2021-10-04] MEDS: FAMOTIDINE 20 MG TABLET PO (08:07)
[2021-10-04] MEDS: DULOXETINE 20 MG CAPSULE 40 MG PO (08:16)
--- NOTE | 2021-10-04 09:19 | PM.PN.EICU ---
Subjective Subjective :: This patient was seen via real time interactive two-way audiovisual telecommunication. 51-year-old female with history of bipolar disorder, benzodiazepine dependency, agoraphobia, hypothyroidism, COVID vaccinated x 3 admitted 10/03/21 with COVID PNA, acute respiratory failure requiring HFNC, and confusion. ? Head CT negative. She got started on remdesivir and dexamethasone for COVID and Precedex drip for agitated delirium. This morning nurse reports that patient's mental status is better. She is still confused but is less agitated on Precedex drip. Her oxygen requirement has gone down from 40L 40% to 8L 40%. Current Medications Current Medications Medications: Home Medications levonorgestrel 20 mcg/24 hours (7 yrs) 52 mg intrauterine device (Mirena) 52 mg IU USEASDIRECTD #0 06/26/12 [History Confirmed 10/04/21] levothyroxine 25 mcg tablet 75 mcg PO DAILY #60 tab 06/14/19 [History Confirmed 10/03/21] multivitamin 1 tab PO DAILY 07/19/19 [History Confirmed 10/03/21] famotidine 20 mg tablet (Pepcid) 20 mg PO DAILY 09/10/19 [History Confirmed 10/03/21] L-theanine 200 mg PO BID 05/15/20 [History Confirmed 10/03/21] methocarbamol 500 mg tablet 500 - 1,000 mg PO QID tab 08/25/20 [History Confirmed 10/03/21] duloxetine 40 mg capsule,delayed release 40 mg PO DAILY #90 cap 06/11/21 [Rx Confirmed 10/03/21] tramadol 50 mg tablet 50 mg PO Q6H PRN tab 08/09/21 [History Confirmed 10/03/21] aripiprazole 300 mg intramuscular suspension,extended release (Abilify Maintena) 300 mg IM QMONTH #1 ea 09/24/21 [Rx Confirmed 10/03/21] aripiprazole 5 mg tablet 7.5 mg PO BEDTIME 10/03/21 [History Confirmed 10/03/21] diazepam 10 mg tablet 30 mg PO BID 10/03/21 [History Confirmed 10/03/21] propranolol 40 mg tablet 40 mg PO BID 10/03/21 [History Confirmed 10/03/21] Visit Medications (administered) Generic Name Dose Route Start Last Admin Trade Name Afshan PRN Reason Stop Dose Admin Aripiprazole 7.5 mg 10/03/21 21:00 10/03/21 20:07 Aripiprazole 10 Mg Tablet PO 7.5 mg BEDTIME MORAIMA Administration Dexamethasone 6 mg 10/04/21 09:00 10/04/21 08:06 Dexamethasone 10 Mg/Ml Vial IV 10/13/21 08:59 6 mg DAILY MORAIMA Administration Diazepam 10 mg 10/03/21 21:00 10/04/21 08:04 Diazepam 5 Mg Tablet PO 10 mg BID MORAIMA Administration Docusate Sodium 100 mg 10/03/21 21:00 10/04/21 08:02 Docusate 100 Mg Capsule PO 100 mg BID MORAIMA Administration Duloxetine HCl 40 mg 10/04/21 09:00 10/04/21 08:16 Duloxetine 20 Mg Capsule PO 40 mg DAILY MORAIMA Administration Famotidine 20 mg 10/04/21 09:00 10/04/21 08:07 Famotidine 20 Mg Tablet PO 20 mg DAILY MORAIMA Administration Sodium Chloride 1,000 mls @ 40 mls/hr 10/03/21 17:30 10/03/21 18:03 Normal Saline 0.9% IV 40 mls/hr CONT MORAIMA Administration dexmedeTOMIDine in 0.9 % NaCL 400 mcg in 100 mls @ 5.175 mls/hr 10/04/21 03:00 10/04/21 04:33 Precedex IV 0.5 mcg/kg/hr TITRATE MORAIMA 12.938 mls/hr Administration 0.2 MCG/KG/HR Levothyroxine Sodium 75 mcg 10/04/21 06:00 10/04/21 06:15 Levothyroxine 75 Mcg Tablet PO 75 mcg DAILY@0600 MORAIMA Administration Magnesium Hydroxide 30 ml 10/03/21 21:00 10/04/21 08:02 Magnesium Hydroxide 30 Ml Udc PO 30 ml BID MORAIMA Administration Nicotine 21 mg 10/04/21 09:00 10/04/21 08:07 Nicotine 21 Mg Patch TOP 21 mg DAILY MORAIMA Administration Propranolol HCl 40 mg 10/03/21 21:00 10/04/21 08:03 Propranolol 40 Mg Tablet PO 40 mg BID MORAIMA Administration Sennosides 17.2 mg 10/03/21 21:00 10/03/21 20:08 Sennosides 8.6 Mg Tablet PO Not Given BEDTIME MORAIMA Tramadol HCl 50 mg 10/03/21 17:00 10/04/21 08:04 Tramadol 50 Mg Tablet PO 50 mg QID MORAIMA Administration Objective Ventilator Parameters: Ventilator Settings FiO2 40 Labs Result Diagrams: 10/04/21 06:50 10/04/21 06:50 Labs: Laboratory Results - last 24 hr 10/03/21 10/03/21 10/03/21 11:38 11:38 11:38 WBC 4.6 RBC 4.37 Hgb 13.9 Hct 41.2 MCV 94.4 MCH 31.7 MCHC 33.6 RDW 13.7 Plt Count 246 Neut % (Auto) 69.9 Lymph % (Auto) 15.2 L [place] % (Auto) 14.1 H Eos % (Auto) 0.4 L Baso % (Auto) 0.4 Neut # (Auto) 3200 Lymph # (Auto) 700 L [place] # (Auto) 600 Eos # (Auto) 0 Baso # (Auto) 0 D-Dimer 459 H ABG pH ABG pCO2 ABG pO2 ABG HCO3 ABG Total CO2 ABG O2 Saturation ABG Base Excess FiO2 Sodium 138 Potassium 3.9 Chloride 98 Carbon Dioxide 33 H BUN 8 Creatinine 0.71 Estimated GFR > 60.0 BUN/Creatinine Ratio 11.3 Glucose 92 Lactate Calcium 8.8 Ferritin 866 H Total Bilirubin 0.4 AST 60 H ALT 36 H Alkaline Phosphatase 117 Ammonia Lactate Dehydrogenase 1358 H Total Creatine Kinase 85 CK-MB (CK-2) TNP CK-MB (CK-2) Rel Index TNP Troponin I < 0.012 C-Reactive Protein 18.5 H NT-Pro-B Natriuret Pep 494 H Total Protein 7.2 Albumin 3.9 Globulin 3.3 Albumin/Globulin Ratio 1.2 Procalcitonin 0.09 TSH Urine RBC Urine WBC Ur Squamous Epith Cells Urine Bacteria Ur Culture Indicated? Nasal Screen MRSA (PCR) U Opiates 300ng/mL cut Ur Oxycodone Screen Urine Methadone Screen Ur Barbiturates Screen U Tricyclic Antidepress Ur Phencyclidine Scrn Ur Amphetamines Screen U Methamphetamines Scrn Ur MDMA Scrn (Ecstasy) U Benzodiazepines Scrn Urine Cocaine Screen U Marijuana (THC) Screen SARS-CoV-2 (PCR) 10/03/21 10/03/21 10/03/21 11:38 11:38 11:39 WBC RBC Hgb Hct MCV MCH MCHC RDW Plt Count Neut % (Auto) Lymph % (Auto) [place] % (Auto) Eos % (Auto) Baso % (Auto) Neut # (Auto) Lymph # (Auto) [place] # (Auto) Eos # (Auto) Baso # (Auto) D-Dimer ABG pH 7.46 H ABG pCO2 40.8 ABG pO2 75 L ABG HCO3 29 H ABG Total CO2 30 ABG O2 Saturation 96 ABG Base Excess 5.0 H FiO2 28 Sodium Potassium Chloride Carbon Dioxide BUN Creatinine Estimated GFR BUN/Creatinine Ratio Glucose Lactate 1.5 Calcium Ferritin Total Bilirubin AST ALT Alkaline Phosphatase Ammonia Lactate Dehydrogenase Total Creatine Kinase CK-MB (CK-2) CK-MB (CK-2) Rel Index Troponin I C-Reactive Protein NT-Pro-B Natriuret Pep Total Protein Albumin Globulin Albumin/Globulin Ratio Procalcitonin TSH 1.04 Urine RBC Urine WBC Ur Squamous Epith Cells Urine Bacteria Ur Culture Indicated? Nasal Screen MRSA (PCR) U Opiates 300ng/mL cut Ur Oxycodone Screen Urine Methadone Screen Ur Barbiturates Screen U Tricyclic Antidepress Ur Phencyclidine Scrn Ur Amphetamines Screen U Methamphetamines Scrn Ur MDMA Scrn (Ecstasy) U Benzodiazepines Scrn Urine Cocaine Screen U Marijuana (THC) Screen SARS-CoV-2 (PCR) 10/03/21 10/03/21 10/03/21 11:50 13:38 13:38 WBC RBC Hgb Hct MCV MCH MCHC RDW Plt Count Neut % (Auto) Lymph % (Auto) [place] % (Auto) Eos % (Auto) Baso % (Auto) Neut # (Auto) Lymph # (Auto) [place] # (Auto) Eos # (Auto) Baso # (Auto) D-Dimer ABG pH ABG pCO2 ABG pO2 ABG HCO3 ABG Total CO2 ABG O2 Saturation ABG Base Excess FiO2 Sodium Potassium Chloride Carbon Dioxide BUN Creatinine Estimated GFR BUN/Creatinine Ratio Glucose Lactate Calcium Ferritin Total Bilirubin AST ALT Alkaline Phosphatase Ammonia Lactate Dehydrogenase Total Creatine Kinase CK-MB (CK-2) CK-MB (CK-2) Rel Index Troponin I C-Reactive Protein NT-Pro-B Natriuret Pep Total Protein Albumin Globulin Albumin/Globulin Ratio Procalcitonin TSH Urine RBC 0-1/hpf Urine WBC 0-1/hpf Ur Squamous Epith Cells 10-30 /hpf H Urine Bacteria Many (>30) H Ur Culture Indicated? Cult not indicated Nasal Screen MRSA (PCR) U Opiates 300ng/mL cut Negative Ur Oxycodone Screen Negative Urine Methadone Screen Negative Ur Barbiturates Screen Negative U Tricyclic Antidepress Negative Ur Phencyclidine Scrn Negative Ur Amphetamines Screen Negative U Methamphetamines Scrn Negative Ur MDMA Scrn (Ecstasy) Negative U Benzodiazepines Scrn Positive H Urine Cocaine Screen Negative U Marijuana (THC) Screen Negative SARS-CoV-2 (PCR) Positive H 10/03/21 10/03/21 10/04/21 15:00 22:09 06:50 WBC 3.3 L RBC 4.01 Hgb 12.5 Hct 37.7 MCV 94.1 MCH 31.3 MCHC 33.2 RDW 13.7 Plt Count 252 Neut % (Auto) 55.2 Lymph % (Auto) 22.6 L [place] % (Auto) 22.1 H Eos % (Auto) 0.0 L Baso % (Auto) 0.1 Neut # (Auto) 1800 Lymph # (Auto) 700 L [place] # (Auto) 700 Eos # (Auto) 0 Baso # (Auto) 0 D-Dimer ABG pH ABG pCO2 ABG pO2 ABG HCO3 ABG Total CO2 ABG O2 Saturation ABG Base Excess FiO2 Sodium Potassium Chloride Carbon Dioxide BUN Creatinine Estimated GFR BUN/Creatinine Ratio Glucose Lactate Calcium Ferritin Total Bilirubin AST ALT Alkaline Phosphatase Ammonia < 9 L Lactate Dehydrogenase Total Creatine Kinase CK-MB (CK-2) CK-MB (CK-2) Rel Index Troponin I C-Reactive Protein NT-Pro-B Natriuret Pep Total Protein Albumin Globulin Albumin/Globulin Ratio Procalcitonin TSH Urine RBC Urine WBC Ur Squamous Epith Cells Urine Bacteria Ur Culture Indicated? Nasal Screen MRSA (PCR) Positive for mrsa H U Opiates 300ng/mL cut Ur Oxycodone Screen Urine Methadone Screen Ur Barbiturates Screen U Tricyclic Antidepress Ur Phencyclidine Scrn Ur Amphetamines Screen U Methamphetamines Scrn Ur MDMA Scrn (Ecstasy) U Benzodiazepines Scrn Urine Cocaine Screen U Marijuana (THC) Screen SARS-CoV-2 (PCR) 10/04/21 06:50 WBC RBC Hgb Hct MCV MCH MCHC RDW Plt Count Neut % (Auto) Lymph % (Auto) [place] % (Auto) Eos % (Auto) Baso % (Auto) Neut # (Auto) Lymph # (Auto) [place] # (Auto) Eos # (Auto) Baso # (Auto) D-Dimer ABG pH ABG pCO2 ABG pO2 ABG HCO3 ABG Total CO2 ABG O2 Saturation ABG Base Excess FiO2 Sodium 138 Potassium 3.5 Chloride 108 H Carbon Dioxide 23 BUN 9 Creatinine 0.53 Estimated GFR > 60.0 BUN/Creatinine Ratio 17.0 Glucose 114 H Lactate Calcium 8.1 L Ferritin Total Bilirubin 0.5 AST 57 H ALT 35 H Alkaline Phosphatase 92 Ammonia Lactate Dehydrogenase Total Creatine Kinase CK-MB (CK-2) CK-MB (CK-2) Rel Index Troponin I C-Reactive Protein NT-Pro-B Natriuret Pep Total Protein 5.9 L Albumin 3.2 L Globulin 2.7 Albumin/Globulin Ratio 1.2 Procalcitonin TSH Urine RBC Urine WBC Ur Squamous Epith Cells Urine Bacteria Ur Culture Indicated? Nasal Screen MRSA (PCR) U Opiates 300ng/mL cut Ur Oxycodone Screen Urine Methadone Screen Ur Barbiturates Screen U Tricyclic Antidepress Ur Phencyclidine Scrn Ur Amphetamines Screen U Methamphetamines Scrn Ur MDMA Scrn (Ecstasy) U Benzodiazepines Scrn Urine Cocaine Screen U Marijuana (THC) Screen SARS-CoV-2 (PCR) Exam Vital Signs (past 8 hours): - 10/04/21 01:30 10/04/21 02:00 10/04/21 02:24 Temperature 97.6 F Pulse Rate 66 66 64 Respiratory Rate 29 H 29 H 39 H Blood Pressure 124/68 Pulse Oximetry 93 94 88 L 10/04/21 02:30 10/04/21 03:00 10/04/21 03:01 Temperature Pulse Rate 61 71 60 Respiratory Rate 33 H 21 29 H Blood Pressure 152/67 H Pulse Oximetry 90 L 93 95 10/04/21 03:30 10/04/21 04:00 10/04/21 04:30 Temperature Pulse Rate 60 61 67 Respiratory Rate 28 H 35 H 33 H Blood Pressure 145/64 H Pulse Oximetry 94 93 94 10/04/21 05:00 10/04/21 05:30 10/04/21 06:00 Temperature Pulse Rate 62 61 64 Respiratory Rate 25 H 27 H 38 H Blood Pressure 154/67 H 150/67 H Pulse Oximetry 92 94 93 10/04/21 06:30 10/04/21 07:00 10/04/21 07:30 Temperature Pulse Rate 62 62 59 L Respiratory Rate 24 25 H 26 H Blood Pressure 152/67 H Pulse Oximetry 91 91 91 10/04/21 07:55 10/04/21 08:00 10/04/21 08:04 Temperature 97.9 F Pulse Rate 72 68 Respiratory Rate 24 Blood Pressure 152/67 H 150/70 H Pulse Oximetry 91 94 10/04/21 08:15 10/04/21 08:30 10/04/21 09:00 Temperature Pulse Rate 62 55 L Respiratory Rate 27 H 23 Blood Pressure Pulse Oximetry 93 93 94 Fraction of Inspired Oxygen 40 Oxygen Delivery Method High Flow Nasal Cannula Oxygen Flow Rate 8 Narrative Exam Narrative: Patient breathing comfortably on 8L nc and resting in bed Quality TeleICU VTE Deep Vein Thrombosis/Pulmonary Embolism Present on Admission: No Assessment & Plan Assessment & Plan narrative: Assessment COVID PNA Hypoxic Respiratory Failure Delirium/Encephalopathy Bipolar Disorder h/o of chronic benzo use Plan COVID PNA: -continue Remdesivir and Decadron course -titrate supplemental Oxygen for pox 90-98% Delirium/Encephalopathy -head CT neg -Dex drip as needed for agitated delirium -pt. continued on her her abilify, duloxetine, and valium Prophylaxis: Lovenox 40 mg SQ BID Time Spent With Patient Critical Care time: I spent a total of [] minutes of critical care time on this patient's care today; this time is exclusive of procedural time.
[2021-10-04] MEDS: POTASSIUM CHLORIDE 20 MEQ TAB 40 MEQ PO (09:50)
[2021-10-04] MEDS: REMDESIVIR 100 MG in SODIUM CHLORIDE 0.9% 230 ML 250 ML IV (12:20)
[2021-10-04] MEDS: dexmedeTOMIDine in 0.9 % NaCL 400 MCG/100 ML PLAST..BAG 10.35 MCG IV (12:41)
--- NOTE | 2021-10-04 12:51 | P.PN_ITS ---
Subjective Subjective Date Patient Seen: 10/04/21 Interval history: 51-year-old female with history of bipolar disorder, benzodiazepine dependency, agoraphobia, hypothyroidism?admitted with COVID pneumonia and encephalopathy. Per ICU nurse patient more cooperative today, had good breakfast but remains confused. No issues with swallowing as of today. She was taken off heated high-flow and is doing well on 6L regular high-flow this morning. She is sleepy on Precedex and we should probably try to taper that off. Also MRI canceled as it seems low yield and patient unlikely to stay still. Exam Vital Signs (past 8 hours): - 10/04/21 05:00 10/04/21 05:30 10/04/21 06:00 Temperature Pulse Rate 62 61 64 Respiratory Rate 25 H 27 H 38 H Blood Pressure 154/67 H 150/67 H Pulse Oximetry 92 94 93 10/04/21 06:30 10/04/21 07:00 10/04/21 07:30 Temperature Pulse Rate 62 62 59 L Respiratory Rate 24 25 H 26 H Blood Pressure 152/67 H Pulse Oximetry 91 91 91 10/04/21 07:55 10/04/21 08:00 10/04/21 08:04 Temperature 97.9 F Pulse Rate 72 68 Respiratory Rate 24 Blood Pressure 152/67 H 150/70 H Pulse Oximetry 91 94 10/04/21 08:15 10/04/21 08:30 10/04/21 09:00 Temperature Pulse Rate 62 55 L Respiratory Rate 27 H 23 Blood Pressure Pulse Oximetry 93 93 94 10/04/21 10:02 10/04/21 11:26 10/04/21 12:27 Temperature 97.5 F L 97.7 F Pulse Rate 61 60 Respiratory Rate 30 H 18 Blood Pressure 164/82 H 134/68 Pulse Oximetry 95 98 97 Fraction of Inspired Oxygen 40 Oxygen Delivery Method High Flow Nasal Cannula Oxygen Flow Rate 6 Narrative Exam Narrative: General: drowsy, breathing non-labored Neuro: confused, oriented to person Objective Labs Result Diagrams: 10/04/21 06:50 10/04/21 06:50 Labs: Laboratory Results - last 24 hr 10/03/21 10/03/21 10/03/21 11:38 13:38 13:38 WBC RBC Hgb Hct MCV MCH MCHC RDW Plt Count Neut % (Auto) Lymph % (Auto) [place] % (Auto) Eos % (Auto) Baso % (Auto) Neut # (Auto) Lymph # (Auto) [place] # (Auto) Eos # (Auto) Baso # (Auto) Sodium Potassium Chloride Carbon Dioxide BUN Creatinine Estimated GFR BUN/Creatinine Ratio Glucose Calcium Total Bilirubin AST ALT Alkaline Phosphatase Ammonia Total Protein Albumin Globulin Albumin/Globulin Ratio TSH 1.04 Urine RBC 0-1/hpf Urine WBC 0-1/hpf Ur Squamous Epith Cells 10-30 /hpf H Urine Bacteria Many (>30) H Ur Culture Indicated? Cult not indicated Nasal Screen MRSA (PCR) U Opiates 300ng/mL cut Negative Ur Oxycodone Screen Negative Urine Methadone Screen Negative Ur Barbiturates Screen Negative U Tricyclic Antidepress Negative Ur Phencyclidine Scrn Negative Ur Amphetamines Screen Negative U Methamphetamines Scrn Negative Ur MDMA Scrn (Ecstasy) Negative U Benzodiazepines Scrn Positive H Urine Cocaine Screen Negative U Marijuana (THC) Screen Negative 10/03/21 10/03/21 10/04/21 15:00 22:09 06:50 WBC 3.3 L RBC 4.01 Hgb 12.5 Hct 37.7 MCV 94.1 MCH 31.3 MCHC 33.2 RDW 13.7 Plt Count 252 Neut % (Auto) 55.2 Lymph % (Auto) 22.6 L [place] % (Auto) 22.1 H Eos % (Auto) 0.0 L Baso % (Auto) 0.1 Neut # (Auto) 1800 Lymph # (Auto) 700 L [place] # (Auto) 700 Eos # (Auto) 0 Baso # (Auto) 0 Sodium Potassium Chloride Carbon Dioxide BUN Creatinine Estimated GFR BUN/Creatinine Ratio Glucose Calcium Total Bilirubin AST ALT Alkaline Phosphatase Ammonia < 9 L Total Protein Albumin Globulin Albumin/Globulin Ratio TSH Urine RBC Urine WBC Ur Squamous Epith Cells Urine Bacteria Ur Culture Indicated? Nasal Screen MRSA (PCR) Positive for mrsa H U Opiates 300ng/mL cut Ur Oxycodone Screen Urine Methadone Screen Ur Barbiturates Screen U Tricyclic Antidepress Ur Phencyclidine Scrn Ur Amphetamines Screen U Methamphetamines Scrn Ur MDMA Scrn (Ecstasy) U Benzodiazepines Scrn Urine Cocaine Screen U Marijuana (THC) Screen 10/04/21 06:50 WBC RBC Hgb Hct MCV MCH MCHC RDW Plt Count Neut % (Auto) Lymph % (Auto) [place] % (Auto) Eos % (Auto) Baso % (Auto) Neut # (Auto) Lymph # (Auto) [place] # (Auto) Eos # (Auto) Baso # (Auto) Sodium 138 Potassium 3.5 Chloride 108 H Carbon Dioxide 23 BUN 9 Creatinine 0.53 Estimated GFR > 60.0 BUN/Creatinine Ratio 17.0 Glucose 114 H Calcium 8.1 L Total Bilirubin 0.5 AST 57 H ALT 35 H Alkaline Phosphatase 92 Ammonia Total Protein 5.9 L Albumin 3.2 L Globulin 2.7 Albumin/Globulin Ratio 1.2 TSH Urine RBC Urine WBC Ur Squamous Epith Cells Urine Bacteria Ur Culture Indicated? Nasal Screen MRSA (PCR) U Opiates 300ng/mL cut Ur Oxycodone Screen Urine Methadone Screen Ur Barbiturates Screen U Tricyclic Antidepress Ur Phencyclidine Scrn Ur Amphetamines Screen U Methamphetamines Scrn Ur MDMA Scrn (Ecstasy) U Benzodiazepines Scrn Urine Cocaine Screen U Marijuana (THC) Screen [facility] Medical History Hypothyroidism [place] No significant medical problems Surgical History History of third molar tooth extraction Status post delivery (01/07/06) Social History household members: spouse Smoking Status: Current every day smoker alcohol intake: former Assessment & Plan Assessment & Plan narrative: 1. Acute hypoxic respiratory failure -initial P/F < 300, RR 40-50 -continue high-flow nasal cannula 2. COVID pneumonia with respiratory failure -remdesivir 200 mg IV x1, then 100 mg IV daily x4 days -dexamethasone 6 mg IV/p.o. for up to 10 days -NS 40 mils per hour until taking p.o. better -enoxaparin 40 mg subQ daily -telemetry 3. Acute metabolic encephalopathy -ddx fever, hypoxia, benzodiazepine withdrawal -head CT negative -continue patient's p.o. psychiatric medications -try to taper off Precedex -treat fever with Tylenol 4. Bipolar disorder, benzodiazepine dependence -continue patient's Abilify, duloxetine, propranolol, diazepam (take 60 mg diazepam daily in divided doses) 5. Hypothyroidism -TSH 1.04, continue levothyroxine DPOA: Spouse, [place] Admission status:? Intensive care unit Total ICU management of up to 60 minutes during course of today's encounter. Can probably go to step-down care later today if stable. Time Spent With Patient Critical Care time: I spent a total of [] minutes of critical care time on this patient's care today; this time is exclusive of procedural time. Quality VTE Deep Vein Thrombosis/Pulmonary Embolism Present on Admission: No
[2021-10-04] MEDS: diazePAM 5 MG TABLET 20 MG PO ×2 (13:21→17:56)
--- NOTE | 2021-10-04 14:42 | DIET.CONS ---
Dietary Consultation Note Admission Date: 10/03/2021 13:32 Assessment: 51y F admitted for covid PNA with confusion referred to nutrition for the same. Pt fully vaccinated, tested covid+ 10d ago. Was on home O2 for a few days, admitted due to increasing confusion. Pt initially on HHFNC now just NC. Pt with BMI 40, upon chart review, pt has gained 20kg over 3y. Ht: 160.02 cm Wt: 104 kg BMI: 31.8 UBW: 94kg Last BM: 10/02/21 (10/03/21 13:46) MNA: 9 Russel Score: 21 Diet: 10/04/21 Breakfast General (Regular) Diet Diet Modifications: Nutrition Percent Meal Consumed 25% 10/04/21 09:05 Labs: RBC 4.01 X10^6/uL (4.0-5.2) 10/04/21 06:50 Hgb 12.5 g/dL (12.0-16.0) 10/04/21 06:50 Hct 37.7 % (36-46) 10/04/21 06:50 Creatinine 0.53 mg/dL (0.52-1.04) 10/04/21 06:50 Lactate 1.5 mmol/L (0.7-2.1) 10/03/21 11:38 Ferritin 866 ng/mL (6-137) H 10/03/21 11:38 NT-Pro-B Natriuret Pep 494 pg/mL (<125) H 10/03/21 11:38 Interventions: 1. Sending ONS Ensure Max c lunch to support nutrition status. Electronically Signed by: Renee Banuelos 10/04/21 14:42 Clinical Dietitian [address] [id number]
--- NOTE | 2021-10-04 15:01 | CM.DANOTE ---
DCP: Case received, EMR reviewed. Have not been able to meet with patient, as she is COVID positive, and respiratory therapy has been in the room. She is currently unable to speak on the phone. Was able to complete DCP assessment based upon information currently available, and from the ICU nurse, Beth, caring for patient. Patient is a 51 year old female who admitted yesterday afternoon to the care of the hospitalist team. PCP: She does see psychiatrist, unknown name, and unknown name of primary care provider. Payer: [facility]. Patient came to the hospital via private vehicle secondary to having increased shortness of breath, as well as fever. Patient had recently tested positive for COVID 19, and is currently positive. She has been vaccinated and had booster. According to notes, patient has oxygen saturations at home in the 80s, and was using home oxygen that was left over from a family member. When she came to the ER, her temp was 103.2. Patient was admitted to ICU for treatment of respiratory failure associated with COVID pneumonia. Patient also has history of bipolar discorder, as well as benzodiazepine dependency, agoraphobia, and hypothyroidism. According to notes, her symptoms had started approximately 10 days ago. She is currently on high flow oxygen. Attempted to call patient in her room, but due to her medical instability, unable to have conversation. According to ICU nurse, Beth, patient is a retired nurse, and , Jason, as well. He has an updated phone number of: [phone]. She is under the care of psychiatry for her medications. P: DCP to continue to check in for any needs. Patient should be able to go home when she is deemed medically stable. Sofia Marrufo RN/Compliance Paralegal Discharge Planning/Care Management Discharge Assessment Start: 10/04/21 14:59 Freq: Status: Active Protocol: Document 10/04/21 15:00 (Rec: 10/04/21 15:01 [id number]) Discharge Planning Assessment Assigned Director Of Sales And Marketing Sofia Marrufo RN/Compliance Paralegal Advance Directives? Yes Advance Directives on File Yes History Provided By Significant Other,Medical Record Prior Living Arrangements House Household Members spouse Type of transporation used prior to Drives own vehicle admit Independent with ADL's Yes Is patient alert and oriented? Yes Needs Assistance With Home Chores / Shopping Caregiver for Another No DME Already Rented / Owned Oxygen Barriers to Discharge No Discharge Plan Home Transportation Arrangement Spouse Referrals Initiated None needed Whiteboard Updated in Patient Room with No name and ext. # of Director Of Sales And Marketing Comment Patient is COVID positive Review Status In Process Next Review Type Continued Stay Review
--- NOTE | 2021-10-04 19:00 | PC.NURSE ---
Addendum entered by Ryanne Cavazos R.N. 10/04/21 19:02: Reviewed Rod's (student nurse) charting and agree with contents. Original Note: Day Shift Note Pt off precedex and IVF at this time. Off heated HFNC this am 0815, started on HFNC 8L and now down to 2L, 91-93%. Up 1 person assist FWW to bathroom and back. Impulsive and requires frequent cueing. Able to state where she is and who she is. Updates given to [facility] throughout shift.
--- NOTE | 2021-10-04 20:41 | PM.ICURNDS ---
- :: This patient was seen via real time interactive two-way audiovisual telecommunication. Note: 51 yo Woman with COVID PNA and delirium/encephalopathy. Pt improved today and got down graded to non ICU status. She is off Precedex drip and now down to only 2L nc. -will sign off -please feel free to reconsult if we can be of help.
[2021-10-04] MEDS: ARIPiprazole 10 MG TABLET 7.5 MG PO (21:15)
[2021-10-04] MEDS: SENNOSIDES 8.6 MG TABLET 17.2 MG PO (21:15)
[2021-10-04] MEDS: SODIUM CHLORIDE 0.9% FLUSH 10 ML IV (21:17)
[2021-10-05] VITALS (12 sets, daily range): BP systolic 136–174; BP diastolic 74–81; PULSE 57–80; RESP 20; TEMP 36.6–36.8; O2SAT 92–96
[2021-10-05 05:08] LABS: Add Manual Diff / Slide Review NO; Basophils Absolute Auto 0 /uL (0-100); Basophils Percent Auto 0.6 % (0-2); Eosinophils Absolute Auto 0 /uL (0-450); Hematocrit 37.6 % (36-46); Hemoglobin 12.8 g/dL (12.0-16.0); Lymphocytes Absolute Auto 900 /uL (1100-4500); Lymphocytes Percent Auto 16.9 % (25-40); Mean Corpuscular HGB Conc 34.2 % (30-36); Mean Corpuscular Hemoglobin 32.1 PG (26-34); Monocytes Absolute Auto 800 /uL (0-900); Neutrophils Absolute Auto 3600 /uL (1500-7000); Neutrophils Percent Auto 67.5 % (50-75); Platelet Count 311 X10^3/uL (150-400); Red Cell Distribution Width 13.5 % (11.6-14.8); White Blood Cell Count 5.3 X10^3/uL (4.5-11.0)
[2021-10-05 05:18] LABS: Alanine Aminotransferase 29 IU/L (<35); Albumin 3.2 g/dL (3.5-5.0); Albumin Globulin Ratio 1.1 (1.0-2.8); Alkaline Phosphatase 87 U/L (38-126); Aspartate Aminotransferase 42 IU/L (14-36); BUN Creatinine Ratio 23.6 (6-22); Bilirubin Total 0.2 mg/dL (0.2-1.3); Blood Urea Nitrogen 13 mg/dL (7-17); Calcium 8.6 mg/dL (8.4-10.2); Carbon Dioxide 29 mmol/L (22-32); Chloride 108 mmol/L (98-107); Estimated Glomerular Filt Rate > 60.0 mL/min (>60); Globulin 2.8 g/dL (1.7-4.1); Glucose 111 mg/dL (70-100); HEMOLYSIS < 15 (0-50); Potassium 4.1 mmol/L (3.4-5.1); Sodium 142 mmol/L (137-145)
[2021-10-05] MEDS: LEVOTHYROXINE 75 MCG TABLET PO (06:51)
[2021-10-05] MEDS: diazePAM 5 MG TABLET 10 MG PO (08:16)
[2021-10-05] MEDS: PROPRANOLOL 40 MG TABLET PO (08:17)
[2021-10-05] MEDS: FAMOTIDINE 20 MG TABLET PO (08:17)
[2021-10-05] MEDS: TRAMADOL 50 MG TABLET PO ×2 (08:17→12:02)
[2021-10-05] MEDS: DEXAMETHASONE 10 MG/ML VIAL 6 MG IV (08:17)
[2021-10-05] MEDS: NICOTINE 21 MG PATCH TOP (08:18)
[2021-10-05] MEDS: SODIUM CHLORIDE 0.9% FLUSH 10 ML IV (08:18)
[2021-10-05] MEDS: DULOXETINE 20 MG CAPSULE 40 MG PO (08:19)
[2021-10-05] MEDS: ACETAMINOPHEN 325 MG TABLET 650 MG PO (10:15)
--- NOTE | 2021-10-05 13:01 | PC.NURSE ---
Discharge Note Pt awake and oriented to self, date and place. Speech delayed and appropriate. Forgetful and impulsive, reports thoughts racing and that she didn't sleep well last night. Steady on feet, independent in room. Weaned oxygen immediately to 2L, SpO2 maintaining 92-96% with activity so oxygen turned off. Pt expresses that she would like to be discharged home today and that she is feeling better. Orders received and discharge plan/instructions relayed to pt and to [facility] via phone. Pt escorted to hospital exit by staff member via wheelchair. All belongings with pt including cell phone, dustless operator, and clothing.
--- NOTE | 2021-10-05 16:19 | PM.DS.1 ---
History of Present Illness History of Present Illness Chief complaint: covid +, high fever, oxygen goes to 80 Narrative: 51-year-old female with history of bipolar disorder, benzodiazepine dependency, agoraphobia, hypothyroidism presented to the emergency department with respiratory symptoms and history of recent positive COVID. Patient is reportedly faxed and boosted for coronavirus. Reportedly symptoms started 10 days ago. She was noted to be tachypneic with respiratory rate in the 30s to 50 per minute in the ED. Her O2 sat was 92% on room air. She reportedly had O2 sats in the 80s at home and was using O2 that was left over from a family member. Later in the ED she spiked a temp to 103.2. She was noted to be quite confused. Chest x-ray with diffuse bilateral infiltrates typical of COVID. Head CT negative. She had normal CBC and renal panel, mildly elevated LFTs, D-dimer 459, ferritin 866, LDH 1358, C-reactive protein 18.5, and BNP 494. On ABG pH 7.46, pCO2 40.8, PO2 75 on 28% FiO2. COVID PCR positive in ED. She got remdesivir and dexamethasone as initial treatment in the ED. She was started on heated high-flow nasal cannula to help with work of breathing. She was admitted to the intensive care unit for treatment of respiratory failure associated with COVID pneumonia. Discharge Providers Provider Date of admission: 10/03/21 13:32 Discharge Date: 10/05/21 Consults: 10/03/21 15:02 Consult to Tele-biodiesel production associate Routine Comment: Consulting Provider: Marlon [employer] Reason for consultation: [employer] Has provider been notified: Yes 10/03/21 15:17 Consult to Dietitian, Adult Routine Comment: Reason For Exam: covid pna 10/03/21 17:25 Consult After Hours PICC Line RN Routine Comment: 10/03/21 22:44 Consult to Physician Routine Comment: Consulting Provider: Ryder Smith Reason for consultation: acute Change in meditation-evaluation if r/t recent med change Has provider been notified: No Discharge provider: Enoc Marcos MD Summary Hospital Course Discharge Diagnosis: 1. Acute hypoxic respiratory failure 2. COVID pneumonia 3. Acute metabolic encephalopathy 4. Bipolar disorder 5. Benzodiazepine dependence 6. Hypothyroidism Hospital Course: Patient admitted for COVID pneumonia with respiratory failure. She was initially managed with heated high-flow cannula in the ICU. Also started on remdesivir and dexamethasone. She was quite confused initially which took her a couple of days for her mental status to mostly clear up. Patient is now sufficiently better where she can go home. Her O2 sats at time of discharge are around 92% on room air. She may need supplemental O2 with exertion and already has an O2 concentrator at home from family members prior use. Status at Discharge Cognitive/behavioral status at discharge: oriented Functional status at discharge: independent ambulation Overall status at discharge: patient is progressing back to baseline Time Spent with Patient Time spent: Greater than 30 minutes Exam Vital Signs (past 8 hours): - 10/05/21 10:06 10/05/21 10:27 Temperature 98 F Pulse Rate 67 Blood Pressure 174/81 H Pulse Oximetry 92 93 Fraction of Inspired Oxygen 40 Oxygen Delivery Method Room Air Oxygen Flow Rate 2 Narrative Exam Narrative: General: Alert, breathing nonlabored Neurological: Oriented to person and place, affect normal, speech normal Objective Labs Result Diagrams: 10/05/21 04:54 10/05/21 04:54 Labs: Laboratory Results - last 24 hr 10/05/21 10/05/21 04:54 04:54 WBC 5.3 D RBC 4.00 Hgb 12.8 Hct 37.6 MCV 94.0 MCH 32.1 MCHC 34.2 RDW 13.5 Plt Count 311 Neut % (Auto) 67.5 Lymph % (Auto) 16.[address] [place] [place] % (Auto) 15.0 H Eos % (Auto) 0.0 L Baso % (Auto) 0.6 Neut # (Auto) 3600 Lymph # (Auto) [address] [place] # (Auto) 800 Eos # (Auto) 0 Baso # (Auto) 0 Sodium 142 Potassium 4.1 Chloride 108 H Carbon Dioxide 29 BUN 13 Creatinine 0.55 Estimated GFR > 60.0 BUN/Creatinine Ratio 23.6 H Glucose 111 H Calcium 8.6 Total Bilirubin 0.2 AST 42 H ALT 29 Alkaline Phosphatase 87 Total Protein 6.0 L Albumin 3.2 L Globulin 2.8 Albumin/Globulin Ratio 1.1 PFSH Medical History Hypothyroidism Laly No significant medical problems Surgical History History of third molar tooth extraction Status post delivery (01/07/06) Social History household members: spouse Smoking Status: Current every day smoker alcohol intake: former Discharge Plan Discharge Plan Patient Disposition: Home Provider Discharge Comment: You were treated for COVID penumonia. Isolate at home through this week. Use oxygen as needed for O2 sat < 88-90%. Discharge orders & Medications Prescriptions: Continued levothyroxine 25 mcg tablet 75 mcg PO DAILY Qty: 60 0RF methocarbamol 500 mg tablet 500 - 1,000 mg PO QID 0RF tramadol 50 mg tablet 50 mg PO Q6H PRN (Reason: pain) 0RF Label Comments: take 1 tablet by mouth every 6 hours if needed for pain -MAX 4 TABS PER DAY Abilify Maintena 300 mg suspension,extended rel recon 300 mg IM QMONTH Qty: 1 2RF Rx Instructions: RN to administer in Dr. Smith's clinic. As on 10/03 pt has not started yet. awaiting ins approval. multivitamin Tablet 1 tab PO DAILY 0RF famotidine [Pepcid] 20 mg tablet 20 mg PO DAILY 0RF Rx Instructions: unknown dose L-theanine 200 mg PO BID 0RF duloxetine 40 mg capsule,delayed release(DR/EC) 40 mg PO DAILY Qty: 90 1RF Mirena 1 EACH intrauterine device 52 mg IU USEASDIRECTD Qty: 0 0RF propranolol 40 mg tablet 40 mg PO BID 0RF Rx Instructions: take 1 tablet by mouth twice a day MAY TAKE ADDITIONAL TABLET if needed for anxiety diazepam 10 mg tablet 30 mg PO BID 0RF Rx Instructions: Weekly prescriptions 10mg AM, 20 mg at 2 pm, 20mg at 5 pm, 10 mg at bedtime aripiprazole 5 mg tablet 7.5 mg PO BEDTIME 0RF Rx Instructions: 09/24/21 try increase from 5mg to 7.5mg Diet/Activity/Treatments Diet: Regular Visit Report/Discharge Packet Instructions: DI for COVID-19 (Suspected or Confirmed ) Quality VTE Deep Vein Thrombosis/Pulmonary Embolism Present on Admission: No
--- NOTE | 2021-10-06 11:29 | CM.DPC ---
SW received a call from pt's spouse Avni [phone] stating pt discharged to home yesterday 10/05/21 and he now feels HH needed as pt still has some ongoing confusion and below baseline and he is having to assist with all her ADL's and pt on 5LO2 at home with COVID+ ongoing recovery. CLINT discussed since pt discharged and discharged MD not working today, spouse will need to go through PCP office (Dr. Ashanti Guzman at [facility]) but SW willing to fax over pt's d/c summary to PCP office and request they place orders for HH RN/PT and spouse very appreciative. SW provided HH Choice list via phone and no preference so SW provided referral to [facility] and called and alerted them to need to f/u with PCP office and [facility] agreeable and willing to accept referral and provided [facility] name to spouse. CLINT faxed referral to [facility] to review. CLINT called PCP office [facility] and provided update and faxed pt's clinicals of her stay at the hospital and PCP will f/u with [facility] towards getting HH RN/PT set up. CLINT also provided list of PP [facility] agencies to spouse in case pt does not improve quickly in her COVID recovery and needs additional assist as spouse is 70 years old and pt is 51 but with significant mental health and medical needs currently. Plan: [facility] referral made and request sent to PCP office towards setting up HH now that pt is already discharged from the hospital. TOMAS Rivero
--- NOTE | 2021-10-06 15:31 | SLP.IPNOTE ---
Addendum entered and electronically signed by Warren Hoskins 10/06/21 15:33: Note should be entered for 10/04/20 Original Note: Order received. Called nursing who stated pt was not appropriate to be seen. ST order cancelled.
--- NOTE | 2021-10-07 10:56 | CM.DPNOTE ---
Bobbi from Dr. Ashanti Guzman at [facility] office called and said Dr. Guzman went home due to Covid +. I explained the situation to her on patient's 's request for home health (see Lilly's note form 10/06/21, because Bobbi wanted clarification. Bobbi will have one of Dr. Guzman' partners review the information for home health for patient. Dianelys Mariee, ZACKARY Assist.
--- NOTE | 2021-10-08 13:07 | CM.DPNOTE ---
Late entry: ASHLEY passed on a phone message, that Avni, of pt., wanted to have home health & O2. I called Chance Anand's office and spoke to Ashley. Ashley said her MA did contact [employer]ni earlier today. They need a face to face for home health within 30 days. Ashley said their office will contact Avni to relay their information again. Dianelys Mariee, ZACKARY Assist.
== END 2021-10-05 12:30 | disposition home health service (06) | DRG 177 ==
LOC: ED 13:32 → ICU 14:36 → AC 10-04 09:41 → ICU 10-04 09:42
PROVIDERS: Internal Medicine Critical Care Medicine; Admitting Provider Internal Medicine; Emergency Provider Emergency Medicine; Referring Provider Emergency Medicine; Visit Provider Internal Medicine
DX: U07.1 COVID-19 (principal); J12.82 Pneumonia due to coronavirus disease 2019; J96.01 Acute respiratory failure with hypoxia; G93.41 Metabolic encephalopathy; F13.20 Sedative, hypnotic or anxiolytic dependence, uncomplicated; F31.9 Bipolar disorder, unspecified; E03.9 Hypothyroidism, unspecified; F17.210 Nicotine dependence, cigarettes, uncomplicated
CPT/HCPCS: 36415; 36600; 70450; 71045; 80053; 80305; 81003; 81015; 81025; 82140; 82550; 82728; 82805; 82962; 83605; 83615; 83880; 84145; 84443; 84484; 85025; 85379; 86140; 87040; 87086; 87635; 87797; 93005; 93010; 94762; 96365; 96375; 99285; 99291; C9803; A9270; J0696; J1100; J1650

== ENCOUNTER 2021-10-08 15:36 | Inpatient (IN) | payer MEDICARE, SELFPAY ==
[2021-10-03 13:46] VITALS: BMI 31.8
[2021-10-08] VITALS (25 sets, daily range): BP systolic 115–151; BP diastolic 68–109; PULSE 68–79; RESP 12–31; TEMP 36.4; O2SAT 88–99; BMI 37.7
--- NOTE | 2021-10-08 15:38 | DI.RAD.S_ITS ---
PROCEDURE: XR CHEST 1V INDICATIONS: flu-like symptoms TECHNIQUE: One view of the chest was acquired. COMPARISON: [facility], CR, XR CHEST 1V, 10/03/2021, 11:40. FINDINGS: Surgical changes and devices: None. Lungs and pleura: Patchy bilateral interstitial and airspace opacities No pleural effusions or pneumothorax. Mediastinum: Mediastinal contours appear normal. Heart size is normal. Bones and chest wall: No suspicious bony lesions. Overlying soft tissues appear unremarkable. IMPRESSION: Patchy bilateral airspace disease consistent with pneumonia. Dictated by: Dixon Hood M.D. on 10/08/2021 at 16:40 Approved by: Dixon Hood M.D. on 10/08/2021 at 16:40
[2021-10-08 16:01] LABS: Add Manual Diff / Slide Review NO; Basophils Absolute Auto 100 /uL (0-100); Basophils Percent Auto 0.9 % (0-2); Eosinophils Absolute Auto 100 /uL (0-450); Eosinophils Percent Auto 1.4 % (2-4); Hematocrit 38.7 % (36-46); Lymphocytes Absolute Auto 1100 /uL (1100-4500); Lymphocytes Percent Auto 18.6 % (25-40); Mean Corpuscular HGB Conc 33.7 % (30-36); Mean Corpuscular Hemoglobin 31.8 PG (26-34); Mean Corpuscular Volume 94.4 fL (80-100); Monocytes Absolute Auto 400 /uL (0-900); Monocytes Percent Auto 6.3 % (3-14); Neutrophils Absolute Auto 4400 /uL (1500-7000); Neutrophils Percent Auto 72.8 % (50-75); Platelet Count 402 X10^3/uL (150-400); Red Cell Distribution Width 13.5 % (11.6-14.8)
[2021-10-08 16:13] LABS: Lactate (Lactic Acid) 0.9 mmol/L (0.7-2.1)
--- NOTE | 2021-10-08 16:13 | ED_ITS ---
HPI - SOB/Dyspnea General Chief Complaint: Shortness of Breath/Dyspnea Stated Complaint: Respiratory distress Time Seen by Provider: 10/08/21 15:37 Source: EMS Mode of arrival: EMS History of Present Illness HPI Narrative: Patient is a 51-year-old female history of bipolar he was recently admitted with hypoxia an COVID left discharged on the she apparently was on room air at discharge. However at home she has had increasing confusion oxygen has been low she has been using her mom's oxygen concentrator. She says it is she was sent home to early and was not sent home with home health care for oxygen. Social work notes have been from this but it does look like they are trying to get home health care as an outpatient and discussed it with primary care. However she is requiring 4-5 L of nasal cannula. He is slightly Related Data Home Medications Medication Instructions Recorded Confirmed levonorgestrel 20 mcg/24 hours (7 52 mg IU USEASDIRECTD #0 06/26/12 10/04/21 yrs) 52 mg intrauterine device (Mirena) levothyroxine 25 mcg tablet 75 mcg PO DAILY #60 tab 06/14/19 10/03/21 multivitamin 1 tab PO DAILY 07/19/19 10/03/21 famotidine 20 mg tablet (Pepcid) 20 mg PO DAILY 09/10/19 10/03/21 L-theanine 200 mg PO BID 05/15/20 10/03/21 methocarbamol 500 mg tablet 500 - 1,000 mg PO QID tab 08/25/20 10/03/21 tramadol 50 mg tablet 50 mg PO Q6H PRN tab 08/09/21 10/03/21 aripiprazole 5 mg tablet 7.5 mg PO BEDTIME 10/03/21 10/03/21 diazepam 10 mg tablet 30 mg PO BID 10/03/21 10/03/21 propranolol 40 mg tablet 40 mg PO BID 10/03/21 10/03/21 Previous Rx's Medication Instructions Recorded duloxetine 40 mg capsule,delayed 40 mg PO DAILY #90 cap 06/11/21 release aripiprazole 300 mg intramuscular 300 mg IM QMONTH #1 ea 09/24/21 suspension,extended release (Abilify Maintena) Allergies Allergy/AdvReac Type Severity Reaction Status Date / Time monosodium glutamate Allergy Severe Anaphylaxis Verified 10/08/21 15:43 paliperidone Allergy Intermediate Rash/hives Verified 10/08/21 15:43 codeine [CODEINE] Allergy Unknown Verified 10/08/21 15:43 sertraline [From ZOLOFT] Allergy Unknown Verified 10/08/21 15:43 Review of Systems Review of Systems Narrative: GENERAL: Denies chills, fatigue, malaise, fever, sweats, travel HEENT: Denies sinus pain, ear pain, sore throat, difficulty swallowing, neck pain RESPIRATORY: See HPI CARDIOVASCULAR: Denies chest pain, palpitations, orthopnea, edema GASTROINTESTINAL: Denies nausea, vomiting, abdominal pain, diarrhea, constipation, melena. : Denies dysuria, frequency, incontinence, hematuria, urinary retention, flank pain. MUSCULOSKELETAL: Denies weakness, joint pain, or bony pain SKIN: No rash, no erythema, no pruritus NEUROLOGIC: Denies weakness, dizziness, headache, numbness, change in speech, confusion PSYCHIATRIC: See HPI, on large doses of Valium daily 12 point review of systems is negative except for those stated above and HPI Patient History Medical History Hypothyroidism Laly No significant medical problems Surgical History History of third molar tooth extraction Status post delivery (01/07/06) Social History household members: spouse Smoking Status: Current every day smoker alcohol intake: former Smoking Status: Current every day smoker alcohol intake frequency: other Substance Use Type: does not use Exam Initial Vital Signs Initial Vital Signs: Vital Signs Temperature 97.6 F 10/08/21 15:38 Pulse Rate 68 10/08/21 15:38 Respiratory Rate 28 H 10/08/21 15:38 Pulse Oximetry 99 10/08/21 15:38 GENERAL: Alert 51-year-old female mild respiratory distress HEENT: Head atraumatic,EOMI, pupils reactive, face symmetric, [moist] mucous membranes CARDIOVASCULAR: Regular rate and rhythm without murmurs, rubs or gallops. RESPIRATORY: Breath sounds equal bilaterally, no wheezes rales or rhonchi. ABDOMEN: Soft, nontender. Normoactive bowel sounds all 4 quadrants. No guarding or rebound. EXTREMITIES: Normal range of motion, no clubbing or edema. Neurovascularly intact NEUROLOGICAL: Moving all extremities no cranial nerve deficit SKIN: Warm, dry, no laceration, no petechiae, no rashes or lesions. Course Orders Ordered: ED Orders 10/08/21 15:38 XR chest 1V Stat EKG-12 Lead Stat 10/08/21 15:49 C-Reactive Protein Quant Stat Complete Blood Count AUTO DIFF Stat Comprehensive Metabolic Panel Stat Lactate (Lactic Acid) Stat Lactate Dehydrogenase Stat NT-proBNP (BNP-Adult 18+) Stat Procalcitonin Stat Troponin & CK Cardiac Panel Stat 10/08/21 16:10 Blood Culture Stat 10/08/21 17:04 CT angio chest PE protocol Stat 10/08/21 17:44 Arterial Blood Gas Stat Vital Signs Vital signs: Vital Signs - 8 hr 10/08/21 15:38 10/08/21 15:40 10/08/21 16:00 Temperature 97.6 F Pulse Rate 68 69 69 Respiratory Rate 28 H 28 H 25 H Blood Pressure 137/89 137/81 Pulse Oximetry 99 99 99 10/08/21 16:17 10/08/21 16:26 10/08/21 16:29 Temperature Pulse Rate 71 70 Respiratory Rate 31 H 28 H Blood Pressure 137/76 Pulse Oximetry 90 L 88 L 93 10/08/21 16:30 10/08/21 16:45 10/08/21 17:00 Temperature Pulse Rate 71 73 74 Respiratory Rate 29 H 30 H 26 H Blood Pressure 141/77 H 143/81 H Pulse Oximetry 93 91 91 10/08/21 17:01 10/08/21 17:20 10/08/21 17:30 Temperature Pulse Rate 71 73 73 Respiratory Rate 23 22 Blood Pressure 135/73 145/98 H 123/78 Pulse Oximetry 92 95 10/08/21 17:49 10/08/21 18:00 10/08/21 18:17 Temperature Pulse Rate 75 74 74 Respiratory Rate 17 12 24 Blood Pressure 115/81 145/79 H 133/81 Pulse Oximetry 94 96 10/08/21 18:30 10/08/21 18:45 Temperature Pulse Rate 75 76 Respiratory Rate 20 Blood Pressure 126/87 131/88 Pulse Oximetry 95 96 MDM - SOB/Dyspnea Lab Data Result diagrams: 10/08/21 15:49 10/08/21 15:49 Labs: Lab Results 10/08/21 10/08/21 10/08/21 Range/Units 15:49 15:49 15:49 WBC 6.0 (4.5-11.0) X10^3/uL RBC 4.10 (4.0-5.2) X10^6/uL Hgb 13.0 (12.0-16.0) g/dL Hct 38.7 (36-46) % MCV 94.4 (80-100) fL MCH 31.8 (26-34) PG MCHC 33.7 (30-36) % RDW 13.5 (11.6-14.8) % Plt Count 402 H (150-400) X10^3/uL Neut % (Auto) 72.8 (50-75) % Lymph % (Auto) 18.6 L (25-40) % Tucker % (Auto) 6.3 (3-14) % Eos % (Auto) 1.4 L (2-4) % Baso % (Auto) 0.9 (0-2) % Neut # (Auto) 4400 (4866-6031) /uL Lymph # (Auto) 1100 (0625-5249) /uL Tucker # (Auto) 400 (0-900) /uL Eos # (Auto) 100 (0-450) /uL Baso # (Auto) 100 (0-100) /uL ABG pH (7.35-7.45) ABG pCO2 (35-45) mmHg ABG pO2 (80-100) mmHg ABG HCO3 (22-26) mmol/L ABG Total CO2 (21-31) mmol/L ABG O2 Saturation (95-100) % ABG Base Excess (-2-2) mmol/L FiO2 Sodium 138 (137-145) mmol/L Potassium 3.9 (3.4-5.1) mmol/L Chloride 103 (98-107) mmol/L Carbon Dioxide 33 H (22-32) mmol/L BUN 12 (7-17) mg/dL Creatinine 0.57 (0.52-1.04) mg/dL Estimated GFR > 60.0 (>60) mL/min BUN/Creatinine Ratio 21.1 (6-22) Glucose 100 (70-100) mg/dL Lactate 0.9 (0.7-2.1) mmol/L Calcium 8.9 (8.4-10.2) mg/dL Total Bilirubin 0.4 (0.2-1.3) mg/dL AST 57 H (14-36) IU/L ALT 43 H (<35) IU/L Alkaline Phosphatase 92 (38-126) U/L Lactate Dehydrogenase 805 H D (313-618) U/L Total Creatine Kinase 22 L (30-135) U/L CK-MB (CK-2) TNP CK-MB (CK-2) Rel Index TNP Troponin I < 0.012 (0.01-0.034) ng/mL C-Reactive Protein 6.0 H (<1.0) mg/dL NT-Pro-B Natriuret Pep 428 H (<125) pg/mL Total Protein 6.0 L (6.3-8.2) g/dL Albumin 3.3 L (3.5-5.0) g/dL Globulin 2.7 (1.7-4.1) g/dL Albumin/Globulin Ratio 1.2 (1.0-2.8) Procalcitonin 0.06 (<0.5) ng/mL 10/08/21 Range/Units 17:44 WBC (4.5-11.0) X10^3/uL RBC (4.0-5.2) X10^6/uL Hgb (12.0-16.0) g/dL Hct (36-46) % MCV (80-100) fL MCH (26-34) PG MCHC (30-36) % RDW (11.6-14.8) % Plt Count (150-400) X10^3/uL Neut % (Auto) (50-75) % Lymph % (Auto) (25-40) % Tucker % (Auto) (3-14) % Eos % (Auto) (2-4) % Baso % (Auto) (0-2) % Neut # (Auto) (6022-8160) /uL Lymph # (Auto) (9390-4223) /uL Tucker # (Auto) (0-900) /uL Eos # (Auto) (0-450) /uL Baso # (Auto) (0-100) /uL ABG pH 7.48 H (7.35-7.45) ABG pCO2 41.0 (35-45) mmHg ABG pO2 81 (80-100) mmHg ABG HCO3 31 H (22-26) mmol/L ABG Total CO2 32 H (21-31) mmol/L ABG O2 Saturation 97 (95-100) % ABG Base Excess 8.0 H (-2-2) mmol/L FiO2 36 Sodium (137-145) mmol/L Potassium (3.4-5.1) mmol/L Chloride (98-107) mmol/L Carbon Dioxide (22-32) mmol/L BUN (7-17) mg/dL Creatinine (0.52-1.04) mg/dL Estimated GFR (>60) mL/min BUN/Creatinine Ratio (6-22) Glucose (70-100) mg/dL Lactate (0.7-2.1) mmol/L Calcium (8.4-10.2) mg/dL Total Bilirubin (0.2-1.3) mg/dL AST (14-36) IU/L ALT (<35) IU/L Alkaline Phosphatase (38-126) U/L Lactate Dehydrogenase (313-618) U/L Total Creatine Kinase (30-135) U/L CK-MB (CK-2) CK-MB (CK-2) Rel Index Troponin I (0.01-0.034) ng/mL C-Reactive Protein (<1.0) mg/dL NT-Pro-B Natriuret Pep (<125) pg/mL Total Protein (6.3-8.2) g/dL Albumin (3.5-5.0) g/dL Globulin (1.7-4.1) g/dL Albumin/Globulin Ratio (1.0-2.8) Procalcitonin (<0.5) ng/mL Imaging Data Chest x-ray: Radiologist's Impression: PROCEDURE:? XR CHEST 1V ? INDICATIONS:? flu-like symptoms ? TECHNIQUE:? One view of the chest was acquired.? ? COMPARISON:? [facility], , XR CHEST 1V, 10/03/2021, 11:40. ? FINDINGS:? ? Surgical changes and devices:? None.? ? Lungs and pleura:? Patchy bilateral interstitial and airspace opacities No pleural effusions or pneumothorax.? ? Mediastinum:? Mediastinal contours appear normal.? Heart size is normal.? ? Bones and chest wall:? No suspicious bony lesions.? Overlying soft tissues appear unremarkable.? ? IMPRESSION:? Patchy bilateral airspace disease consistent with pneumonia. ? ? Dictated by: Dixon Hood M.D. on 10/08/[address] scan - chest: Radiologist's Impression: PROCEDURE:? CT ANGIO CHEST PE PROTOCOL ? INDICATIONS:? hypoxia recent hospitalization with covid ? TECHNIQUE:? After the administration of intravenous contrast, 2 mm thick sections acquired from the pulmonary apices to the posterior costophrenic angles.? 3-dimensional maximum intensity projection (MIP) coronal and sagittal reformats were then acquired through the thorax.? For radiation dose reduction, the following was used:? automated exposure control, adjustment of mA and/or kV according to patient size.? ? COMPARISON:? None. ? FINDINGS:? Image quality:? Excellent.? ? Pulmonary arteries:? Pulmonary arteries are normal in size, and demonstrate no intraluminal filling defects to suggest central pulmonary embolism.? ? Lungs and pleura:? Moderate multifocal patchy bilateral pulmonary airspace opacity is present.? No pleural effusions or pneumothorax.? Central and peripheral airways are patent.? ? Mediastinum:? Heart size is normal, without pericardial effusion.? No mediastinal or hilar adenopathy.? Thoracic aorta is normal in caliber and enhancement.? Esophagus is normal in caliber, without hiatal hernia.? ? Bones and chest wall:? No suspicious bony lesions.? Ribs and thoracic spine appear intact throughout.? Thyroid gland is within normal limits.? No axillary or supraclavicular adenopathy.? ? Abdomen:? Visualized upper abdominal solid organs appear normal in the early arterial phase of enhancement.? ? IMPRESSION:? 1. No pulmonary embolus. 2. Moderate bilateral pneumonia. ? ? Dictated by: Inez Turner M.D. on 10/08/2021 at? ECG Data Interpretation: Normal sinus rhythm rate 70 DE interval [address] changes T-wave inversion noted in V2 and V3 slightly more pronounced today is similar to previous [facility] Narrative Medical decision making narrative: Patient is still requiring oxygen after her recent hospitalization. Her CT angio is negative for pulmonary embolism. She will need home oxygen. Dr. Patel updated on symptoms is except Discharge Plan Departure Patient Disposition: Admitted as Observation Clinical Impression: COVID-19, Respiratory failure Admit Date/Time: 10/08/21 18:49 Admit Provider: Monty Patel
[2021-10-08 16:16] LABS: Alanine Aminotransferase 43 IU/L (<35); Albumin 3.3 g/dL (3.5-5.0); Albumin Globulin Ratio 1.2 (1.0-2.8); Alkaline Phosphatase 92 U/L (38-126); Aspartate Aminotransferase 57 IU/L (14-36); BUN Creatinine Ratio 21.1 (6-22); Bilirubin Total 0.4 mg/dL (0.2-1.3); Blood Urea Nitrogen 12 mg/dL (7-17); Calcium 8.9 mg/dL (8.4-10.2); Carbon Dioxide 33 mmol/L (22-32); Chloride 103 mmol/L (98-107); Creatine Kinase 22 U/L (30-135); Estimated Glomerular Filt Rate > 60.0 mL/min (>60); Globulin 2.7 g/dL (1.7-4.1); Glucose 100 mg/dL (70-100); Lactate Dehydrogenase 805 U/L (313-618); Potassium 3.9 mmol/L (3.4-5.1); Sodium 138 mmol/L (137-145)
[2021-10-08 16:21] LABS: NT-proBNP (BNP-Adult 18+) 428 pg/mL (<125)
[2021-10-08 16:27] LABS: HEMOLYSIS < 15 (0-50); Troponin I < 0.012 ng/mL (0.01-0.034)
[2021-10-08 16:29] LABS: Procalcitonin 0.06 ng/mL (<0.5)
--- NOTE | 2021-10-08 17:04 | DI.CT.S_ITS ---
PROCEDURE: CT ANGIO CHEST PE PROTOCOL INDICATIONS: hypoxia recent hospitalization with covid TECHNIQUE: After the administration of intravenous contrast, 2 mm thick sections acquired from the pulmonary apices to the posterior costophrenic angles. 3-dimensional maximum intensity projection (MIP) coronal and sagittal reformats were then acquired through the thorax. For radiation dose reduction, the following was used: automated exposure control, adjustment of mA and/or kV according to patient size. COMPARISON: None. FINDINGS: Image quality: Excellent. Pulmonary arteries: Pulmonary arteries are normal in size, and demonstrate no intraluminal filling defects to suggest central pulmonary embolism. Lungs and pleura: Moderate multifocal patchy bilateral pulmonary airspace opacity is present. No pleural effusions or pneumothorax. Central and peripheral airways are patent. Mediastinum: Heart size is normal, without pericardial effusion. No mediastinal or hilar adenopathy. Thoracic aorta is normal in caliber and enhancement. Esophagus is normal in caliber, without hiatal hernia. Bones and chest wall: No suspicious bony lesions. Ribs and thoracic spine appear intact throughout. Thyroid gland is within normal limits. No axillary or supraclavicular adenopathy. Abdomen: Visualized upper abdominal solid organs appear normal in the early arterial phase of enhancement. IMPRESSION: 1. No pulmonary embolus. 2. Moderate bilateral pneumonia. Dictated by: Inez Turner M.D. on 10/08/2021 at 17:28 Approved by: Inez Turner M.D. on 10/08/2021 at 17:30
[2021-10-08 18:20] LABS: pH ABG 7.48 (7.35-7.45)
[2021-10-08 18:21] LABS: Fractionated Inspired Oxygen 36; HCO3 ABG 31 mmol/L (22-26); Oxygen Saturation ABG 97 % (95-100); PO2 ABG 81 mmHg (80-100); TCO2 ABG 32 mmol/L (21-31)
--- NOTE | 2021-10-08 18:29 | PC.NURSE ---
spoke to kristin jewell update via phone provided [phone] reports using oxygen 4 liters to maintain oxygen saturation 92-93% pt having very poor intake both water or food, sipping ensure only very sob to move around no oxygen at home that is portable but used an oxygen concentrator that was from her mother. very concearned about this he is also very concerned that she went home without portable oxygen tanks, home health nurse, no social work consult that he recalls. she is on quite a few behavioral health meds that reports 60 mg daily 10 mg am 20 mg 2pm 20 pm 1700 and 20 mg hs, ultram, abilify 5 mg hs, propanol bid, levothyroxine am, cymbalta 40 mg am, methocarbamol hs, l theanin. all these are on dc med sheet given to paramedics sheet is accurate.
--- NOTE | 2021-10-08 19:25 | PC.NURSE ---
pt sitting in [facility] waiting bed assignment
[2021-10-08 20:11] LABS: COVID19 -Nasal RAPID POSITIVE (Negative)
--- NOTE | 2021-10-08 21:49 | PM.HP.1 ---
History of Present Illness History of Present Illness Date Patient Seen: 10/08/21 Time Patient Seen: 20:56 Chief complaint: Respiratory distress Narrative: Eliz Todd 51-year-old female with history of bipolar disorder, benzodiazepine dependency, agoraphobia, hypothyroidism presented to the emergency department with respiratory symptoms and history of recent positive COVID 09/24/2021.??Patient was recently admitted 10/03 with Acute respiratory failure with hypoxia due to COVID pneumonia discharged 10/05/21 on room air at discharge.? However at home she had developed increasing confusion as her oxygen had been low so she has began using her mom's oxygen concentrator.? The patient verbalized to the ED she was sent home to early and was not sent home with home health care for oxygen.? Social work notes have been from this but it does look like they are trying to get home health care as an outpatient and discussed it with primary care.? However the patient presented to the ED requiring 4-5 L NC for 02 saturation above 90%.?The patient desat's to the low 80's on room air. Patient complains of increasing shortness of breath, cough, and mild headache. Patient denies chest pain, palpitations, abdominal pain, nausea, vomiting, diarrhea, fever, chills, body aches, peripheral edema, recent trauma or injury. Patient's vitals upon admit were stable temp 97.6?, BP 133/81, HR 74, R 24, O2 saturation 96% on 4L NC. Patient's CBC was grossly normal with the exception of platelets 402, CMP was within normal limits, AST 57, ALT 43, lactate and troponin, were normal. Elevated CRP 6.0, BNP 428, total protein 6.0, albumin 3.3, procalcitonin WNL. LDH 805, TCK 22, COVID PCR positive. Chest CTA was negative for pulmonary embolism, but demonstrated moderate bilateral pneumonia. Patient's chest x-ray demonstrated patchy bilateral airspace disease consistent with pneumonia. Patient's ABGs is pH 7.48, HC03 31, total CO2 32, base excess 8. Patient was admitted for acute respiratory failure with hypoxia, metabolic alkalosis due to COVID pneumonia. Patient History Medical History (Updated 10/09/21 @ 00:01 by FLYNN Prince) Benzodiazepine dependence Hypothyroidism Laly No significant medical problems Tobacco abuse Surgical History History of third molar tooth extraction Status post delivery (01/07/06) Family & Social History Family History Mother COVID-19 Father COVID-19 Social History: household members spouse Prior Living Arrangements House Safety & Behavioral: Feels Safe in Current Yes Environment Been Physically Hurt or No Threatened By a Person Suicidal Ideation Description None Suicide Plan Description No Plan Tobacco & Substance use: Tobacco type cigarettes Smoking Status Current every day smoker alcohol intake former alcohol intake frequency other Substance Use Type does not use Meds Home Medications and Allergies Home Medications Medication Instructions Recorded Confirmed Type levonorgestrel 20 mcg/24 hours (7 52 mg IU USEASDIRECTD #0 06/26/12 10/08/21 History yrs) 52 mg intrauterine device (Mirena) levothyroxine 25 mcg tablet 75 mcg PO DAILY #60 tab 06/14/19 10/08/21 History multivitamin 1 tab PO DAILY 07/19/19 10/08/21 History famotidine 20 mg tablet (Pepcid) 20 mg PO DAILY 09/10/19 10/08/21 History L-theanine 200 mg PO BID 05/15/20 10/08/21 History methocarbamol 500 mg tablet 500 - 1,000 mg PO QID tab 08/25/20 10/08/21 History tramadol 50 mg tablet 50 mg PO Q6H PRN tab 08/09/21 10/08/21 History aripiprazole 5 mg tablet 7.5 mg PO BEDTIME 10/03/21 10/08/21 History diazepam 10 mg tablet 30 mg PO BID 10/03/21 10/08/21 History propranolol 40 mg tablet 40 mg PO BID 10/03/21 10/08/21 History Allergies Allergy/AdvReac Type Severity Reaction Status Date / Time monosodium glutamate Allergy Severe Anaphylaxis Verified 10/08/21 15:43 paliperidone Allergy Intermediate Rash/hives Verified 10/08/21 15:43 codeine [CODEINE] Allergy Unknown Verified 10/08/21 15:43 sertraline [From ZOLOFT] Allergy Unknown Verified 10/08/21 15:43 Review of Systems Review of Systems Narrative: All 12 point systems reviewed with the patient and are negative except otherwise documented. Exam Vital Signs (past 8 hours): - 10/08/21 15:38 10/08/21 15:40 10/08/21 16:00 Temperature 97.6 F Pulse Rate 68 69 69 Respiratory Rate 28 H 28 H 25 H Blood Pressure 137/89 137/81 Pulse Oximetry 99 99 99 10/08/21 16:17 10/08/21 16:26 10/08/21 16:29 Temperature Pulse Rate 71 70 Respiratory Rate 31 H 28 H Blood Pressure 137/76 Pulse Oximetry 90 L 88 L 93 10/08/21 16:30 10/08/21 16:45 10/08/21 17:00 Temperature Pulse Rate 71 73 74 Respiratory Rate 29 H 30 H 26 H Blood Pressure 141/77 H 143/81 H Pulse Oximetry 93 91 91 10/08/21 17:01 10/08/21 17:20 10/08/21 17:30 Temperature Pulse Rate 71 73 73 Respiratory Rate 23 22 Blood Pressure 135/73 145/98 H 123/78 Pulse Oximetry 92 95 10/08/21 17:49 10/08/21 18:00 10/08/21 18:17 Temperature Pulse Rate 75 74 74 Respiratory Rate 17 12 24 Blood Pressure 115/81 145/79 H 133/81 Pulse Oximetry 94 96 10/08/21 18:30 10/08/21 18:45 10/08/21 19:00 Temperature Pulse Rate 75 76 77 Respiratory Rate 20 Blood Pressure 126/87 131/88 Pulse Oximetry 95 96 96 10/08/21 19:01 10/08/21 19:16 10/08/21 19:30 Temperature Pulse Rate 75 78 75 Respiratory Rate Blood Pressure 151/105 H 139/68 147/77 H Pulse Oximetry 97 98 97 10/08/21 19:46 10/08/21 19:53 10/08/21 20:00 Temperature Pulse Rate 79 78 76 Respiratory Rate 22 Blood Pressure 150/109 H 127/78 128/78 Pulse Oximetry 96 95 95 Oxygen Delivery Method Nasal Cannula Oxygen Flow Rate 4 Narrative Exam Narrative: General: Patient is a well-developed, well-nourished obese female, moderately ill appearing in no distress at this time. HEENT: Normocephalic, atraumatic, extraocular muscles intact, oral pharynx is clear and mucous membranes are dry, cracked. Neck is supple and symmetric, trachea is midline, no adenopathy, no thyroid enlargement, nontender, no masses palpated. Negative for JVD Chest: Normal AP diameter and contour without kyphoscoliosis, no nasal flaring, retractions, mild tachypneic labored breathing. Lungs: Auscultation of all lung mora are clear decreased, coarse, poor air exchange without adventitious sounds, wheezes, rhonchi, or rales. Cardio: regular rate and rhythm without murmur, rubs, or gallops, no carotid bruit, no cardiac pulsations present. Abdomen: Soft nontender, negative for organomegaly, or masses. Bowel sounds are present in all 4 quadrants without guarding or rebound, no CVA tenderness. Musculoskeletal: Muscle strength and tone are equal within normal limits, no deformity, crepitus, effusions, cyanosis, clubbing or edema present. Full range of motion intact radial and pedal pulses are normal. Skin: Warm dry and intact without rashes, ulcerations or petechiae. Neuro: Alert and orientated x3, strength is +5/5 in all extremities, sensation to touch intact, no gross deficits noted of cranial nerves. Psych: Patient has a well-kept appearance, appropriate affect, mental status attitude thought context and judgment are appropriate for age. Objective Labs Result Diagrams: 10/08/21 15:49 10/08/21 15:49 Labs: Laboratory Results - last 24 hr 10/08/21 10/08/21 10/08/21 15:49 15:49 15:49 WBC 6.0 RBC 4.10 Hgb 13.0 Hct 38.7 MCV 94.4 MCH 31.8 MCHC 33.7 RDW 13.5 Plt Count 402 H Neut % (Auto) 72.8 Lymph % (Auto) 18.6 L [place] % (Auto) 6.3 Eos % (Auto) 1.4 L Baso % (Auto) 0.9 Neut # (Auto) 4400 Lymph # (Auto) 1100 [place] # (Auto) 400 Eos # (Auto) 100 Baso # (Auto) 100 ABG pH ABG pCO2 ABG pO2 ABG HCO3 ABG Total CO2 ABG O2 Saturation ABG Base Excess FiO2 Sodium 138 Potassium 3.9 Chloride 103 Carbon Dioxide 33 H BUN 12 Creatinine 0.57 Estimated GFR > 60.0 BUN/Creatinine Ratio 21.1 Glucose 100 Lactate 0.9 Calcium 8.9 Total Bilirubin 0.4 AST 57 H ALT 43 H Alkaline Phosphatase 92 Lactate Dehydrogenase 805 H D Total Creatine Kinase 22 L CK-MB (CK-2) TNP CK-MB (CK-2) Rel Index TNP Troponin I < 0.012 C-Reactive Protein 6.0 H NT-Pro-B Natriuret Pep 428 H Total Protein 6.0 L Albumin 3.3 L Globulin 2.7 Albumin/Globulin Ratio 1.2 Procalcitonin 0.06 SARS-CoV-2 (PCR) 10/08/21 10/08/21 17:44 19:45 WBC RBC Hgb Hct MCV MCH MCHC RDW Plt Count Neut % (Auto) Lymph % (Auto) [place] % (Auto) Eos % (Auto) Baso % (Auto) Neut # (Auto) Lymph # (Auto) [place] # (Auto) Eos # (Auto) Baso # (Auto) ABG pH 7.48 H ABG pCO2 41.0 ABG pO2 81 ABG HCO3 31 H ABG Total CO2 32 H ABG O2 Saturation 97 ABG Base Excess 8.0 H FiO2 36 Sodium Potassium Chloride Carbon Dioxide BUN Creatinine Estimated GFR BUN/Creatinine Ratio Glucose Lactate Calcium Total Bilirubin AST ALT Alkaline Phosphatase Lactate Dehydrogenase Total Creatine Kinase CK-MB (CK-2) CK-MB (CK-2) Rel Index Troponin I C-Reactive Protein NT-Pro-B Natriuret Pep Total Protein Albumin Globulin Albumin/Globulin Ratio Procalcitonin SARS-CoV-2 (PCR) Positive H Assessment & Plan Assessment & Plan narrative: Eliz Todd 51-year-old female with history of bipolar disorder, benzodiazepine dependency, agoraphobia, hypothyroidism presented to the emergency department with respiratory symptoms and history of recent positive COVID 09/24/2021. ?Patient was recently admitted with Acute respiratory failure with hypoxia due to COVID pneumonia discharged 10/03/21 on room air at discharge.? Social work notes have been from this but it does look like they are trying to get home health care as an outpatient, and discussed it with primary care.? However the patient presented to the ED requiring 4-5 L NC for 02 saturation above 90%.?The patient desat's to the low 80's on room air. 1. Acute respiratory failure with hypoxia, metabolic alkalosis, due to COVID pneumonia, acute, in the setting of tobacco abuse, acute on chronic, present on admission -Patient was d/c on Rm air, she is requiring 5 liters NC for 02 saturation 96%. -Patient received 3 days of remdesivir dexamethasone on previous hospitalizations. Will continue these medications -Albuterol HFA inhaler PRN -resp consult -Bld culture pending, sputum culture ordered -inspiratory spirometry 2. Bipolar with anxiety, in the setting of benzodiazepine dependence, chronic, present on admission -the patients medication dosages were verified by Dr. Marcos -patient is on a benzodiazepine contract with Dr. Smith her psychiatrist -Continue Abilify, diazepam 10mg QAM/QHS, 20mg @2pm, 5pm, Tramadol 20mg TID 3. Hypothyroidism, acquired, chronic, present on admission -continue levothyroxine Code status:Full Surrogate decision maker: [place] Spouse COVID PCR:POSITIVE -original positive test reported to be 09/24/2021 COVID vaccination: Fully Vaccinated & Boostered DVT/VTE prophylaxis: Lovenox 40mg & SCD's Disposition: I have utilized all available immediate resources to obtain, update, or review the patient's current medications. I confirmed that the patient's advanced care plan is present, Code status is documented and/or surrogate decision maker is listed in the patient's medical record. Time Spent With Patient Critical Care time: I spent a total of [] minutes of critical care time on this patient's care today; this time is exclusive of procedural time. Quality VTE Deep Vein Thrombosis/Pulmonary Embolism Present on Admission: No
[2021-10-08] MEDS: PROPRANOLOL 40 MG TABLET PO (23:46)
[2021-10-08] MEDS: ARIPiprazole 10 MG TABLET 7.5 MG PO (23:46)
[2021-10-08] MEDS: diazePAM 5 MG TABLET 20 MG PO (23:59)
[2021-10-09] VITALS: BP 149/72; PULSE 77; RESP 22; TEMP 36.9; O2SAT 94
[2021-10-09 04:00] VITALS: BP 122/61; PULSE 71; RESP 20; TEMP 36.4; O2SAT 95
--- NOTE | 2021-10-09 05:51 | PC.NURSE ---
Shift note: Received patient from ER, admitted under hospitalist service with complaint of worsening shortness of breath, COVID-19 pos. Patient was alert and orientedx4, afebrile, vital signs are within acceptable limits. Maintained O2 support by nasal cannula at 4lpm, with O2 sat >92%. Patient denies any paim/discomfort, still dyspneic upon exertion but can tolerate activity. Lungs are clear to diminished bilaterally. Active bowel sounds. with peripheral IV access x2 at right arm, saline lock. Will continue to monitor.
[2021-10-09 07:50] VITALS: BP 133/67; PULSE 68; RESP 19; O2SAT 90
[2021-10-09] MEDS: LEVOTHYROXINE 25 MCG TABLET 75 MCG PO (08:30)
[2021-10-09] MEDS: PROPRANOLOL 40 MG TABLET PO (08:30)
[2021-10-09] MEDS: TRAMADOL 50 MG TABLET PO (08:30)
[2021-10-09] MEDS: ENOXAPARIN 40 MG/0.4 ML SYRINGE SUBCUT (08:30)
[2021-10-09] MEDS: FAMOTIDINE 20 MG TABLET PO (08:31)
[2021-10-09] MEDS: diazePAM 5 MG TABLET 20 MG PO (08:31)
[2021-10-09] MEDS: DEXAMETHASONE 10 MG/ML VIAL 6 MG IV (08:31)
[2021-10-09 09:18] VITALS: O2SAT 92
[2021-10-09] MEDS: REMDESIVIR 100 MG in SODIUM CHLORIDE 0.9% 230 ML 250 ML IV (09:42)
--- NOTE | 2021-10-09 10:08 | PC.NURSE ---
Addendum entered by Jacquelyn Montalvo R.N. 10/09/21 13:46: discharged to home following receiving orders from MD, he phoned and discussed dc plan with pts spouse- as has dc wedding planner talked to pt and her spouse- rx electronically sent to out pt pharmacy- discharged from hospital at this time Addendum entered by Jacquelyn Montalvo R.N. 10/09/21 12:11: pt showered with this RN TO ASSIST- SHE HAS BEEN 89-96% ON ROOM AIR POST SHOWER- HR 79 AND DENIES PAIN- RETURNED TO CHAIR FOR LUNCHTIME MEAL THEN WILL ALLOW RETURN TO BED Addendum entered by Jacquelyn Montalvo R.N. 10/09/21 10:47: CALLED TO PTS ROOM AND SHE REQUESTED HER MORNING VALIUM REMINDED HER THAT I GAVE HER AM DOSE APPROX 1-1.5H AGO SHE RESPONDED THAT OH I DID IT AGAIN, WHEN QUESTIONED RE: THIS STATEMENT SHE SAID SHE FREQUENTLY FORGETS ABOUT HER MEDS - UPDATE TO MD AND REQUEST FOR HIM TO CALL SPOUSE AVINASH, AFTER HIS ASSESSMENT Original Note: PT APPEARS LETHARGIC AND DROWSY- SLOW TO RESPOND VERBALLY BUT ENTIRELY APPROPRIATE CONTEXT- SHE DENIES MUCH PAIN AND REPORTED NOT EATING OR DRINKING MUCH AT HOME- ASSISTED PT TO GET UP TO CHAIR AND THEN SHE TOOK OFF O2 TO AMBULATE TO BR ( UNASSISTED) FIRMLY INSTRUCTED TO LEAVE OXYGEN ON REGARDLESS OF ACTIVITY - WHEN RETURNED TO CHAIR SHE WAS 93% ON 2L NC- PT IS AGREEABLE TO TAKE SHHOWER LATER THIS SHIFT. PT REPEATEDLY TAKES OFF O2 DESPITE FIRM WARNINGS NOT TO, SEVERAL TELEPHONE CALLS FROM SPOUSE, AVINASH, MOST OF WHICH I COULD NOT TAKE I WAS WITH THE PT.
[2021-10-09 11:00] VITALS: BP 144/83; PULSE 88; RESP 19; TEMP 36.6; O2SAT 90
--- NOTE | 2021-10-09 11:57 | CM.DANOTE ---
Addendum entered by Sofia Marrufo R.N. 10/09/21 14:19: Spoke to patient's , Jason, who had spoken to Dr. Patel. He felt more reassured by her lab numbers. Let him know about the [facility] program, with telehealth, and that Mary at [facility] would be reaching out to him. He thought this was a good idea, he just hoped that [facility] could see her soon. Let him know that she may not be able to be seen until Monday or Mon. Patient does not qualify for home oxygen, which he understands. Called Mary at [facility] and let her know that patient is discharging, and that H&P, orders, and notes were faxed to her. Let her know that DC Summary will be faxed as soon as they are completed. Patient discharged home today. Nurse, Jacquelyn, also updated patient's spouse regarding home medications and condition. Original Note: DCP: Case received, EMR received. Did not meet with patient secondary to her having COVID, but spoke to patient's , Jason, who had called with questions. Was able to complete DCP assessment based upon information currently available. Patient is a 51 year old female who admitted yesterday afternoon to the care of the hospitalist team. PCP: JOSE ANGEL Duncan at [facility]. Payer: confirmed: [facility]. Patient came to the hospital via ambulance secondary to having increased shortness of breath and low oxygen saturations. Patient had been here recently with COVID, and discharged on 10/03. She did not go home on home oxygen. According to notes, patient had been using her mother's oxygen concentrator at home, her mother is . Patient holds current diagnosis of acute respirtory failure with hypoxia due to COVID pneumonia. In the ER, patient was on 4-5 liters to keep her saturations above 90%. According to nursing, she is currently on 2 liters of oxygen. Patient's had called several times, according to ICU nurse. At last admissions, spouse was working on getting patient home health services, but she had already discharged, and was unable to get her home health services here. Spoke to spouse who is a retired RN. Confirmed that patient is independent at home, but does not drive. She is also under the care of Dr. Smith, psychiatrist, for patient. He and patient both met in nursing school, he is a retired RN. He is concerned that if she is discharged too soon, she will end up back here, and would like to speak to hospitalist to ensure that respiratory therapy will also work with patient to determine home oxygen needs. Spouse was asking for portable oxygen, informed him that patient would need to be evaluated by RT to see if she needs home oxygen, and would have to order. He mentioned pulmonary rehab, but let him know if she is under home health services, she could not do both. Called Mary at [facility] to see if she was familiar with patient at last discharge. She indicated, she is familiar with patient, they were working on getting her home health when she was discharged at last visit with her primary care provider. Let her know that patient is currently here, and will get face to face signed by hospitalist. She indicated that they have a program through [facility], not the [facility], but a telehealth visit in the home that vitals and parameters can be monitored on a lap top. She indicated, they can provide the equipment in the home for patient to do so. Gave her patient's name and phone number, and she will call him today to explain how this work. They are currently out 24-48 hours, but may not be able to see patient until Wed. Asked Dr. Patel to call spouse when he can, and had him sign a face to face. Will ask for nursing, but will include P.T, and O.T. as well. Will fax Mary H&P per her request. P: DCP to continue to follow. Plan is home with [facility]. It is unclear at this time if patient will need home oxygen. Have face to face signed, will fax over H&P for this admission to [facility]. Sofia Marrufo RN/Fiscal Clerk Discharge Planning/Care Management CM Discharge Assessment Start: 10/09/21 11:55 Freq: Status: Active Protocol: Document 10/09/21 11:55 (Rec: 10/09/21 11:57 [id number]) Discharge Planning Assessment Assigned Aviation Maintenance Technician Sofia Marrufo RN/Fiscal Clerk Advance Directives? Yes Advance Directives on File Yes History Provided By Patient,Significant Other, Medical Record Prior Living Arrangements House Household Members spouse Type of transporation used prior to Relies on Others admit Independent with ADL's Yes Is patient alert and oriented? Yes Caregiver for Another No Patient/Family Preference Home with Home Health Barriers to Discharge No Comment Patient has supportive at home. Discharge Plan Home with Home Health Transportation Arrangement Spouse Referrals Initiated Home Health Additional Comment [facility] had initial referral. If patient plan is home with home health Yes : Has signed face to face form been completed? Has Agency SNF been contacted Yes Comment Spoke to Mary at [facility]. Whiteboard Updated in Patient Room with No name and ext. # of Aviation Maintenance Technician Comment Patient is COVID positive Review Status In Process Next Review Type Continued Stay Review
--- NOTE | 2021-10-09 12:41 | PM.DS.1 ---
History of Present Illness History of Present Illness Date Patient Seen: 10/09/21 Time Patient Seen: 12:30 Chief complaint: Respiratory distress Narrative: Per Tina Mike, FURNIT[employer] DELIVERY DRIVER-BC: Eliz Todd 51-year-old female with history of bipolar disorder, benzodiazepine dependency, agoraphobia, hypothyroidism presented to the emergency department with respiratory symptoms and history of recent positive COVID 09/24/2021.??Patient was recently admitted 10/03 with Acute respiratory failure with hypoxia due to COVID pneumonia discharged 10/05/21 on room air at discharge.? However at home she had developed increasing confusion as her oxygen had been low so she has began using her mom's oxygen concentrator.? The patient verbalized to the ED she was sent home to early and was not sent home with home health care for oxygen.? Social work notes have been from this but it does look like they are trying to get home health care as an outpatient and discussed it with primary care.? However the patient presented to the ED requiring 4-5 L NC for 02 saturation above 90%.?The patient desat's to the low 80's on room air.? Patient complains of increasing shortness of breath, cough, and mild headache.? Patient denies chest pain, palpitations, abdominal pain, nausea, vomiting, diarrhea, fever, chills, body aches, peripheral edema, recent trauma or injury. Patient's vitals upon admit were stable temp 97.6?, BP 133/81, HR 74, R 24, O2 saturation 96% on 4L NC.? Patient's CBC was grossly normal with the exception of platelets 402, CMP was within normal limits, AST 57, ALT 43, lactate and troponin, were normal.? Elevated CRP 6.0, BNP 428, total protein 6.0, albumin 3.3, procalcitonin WNL.? LDH 805, TCK 22, COVID PCR positive. Chest CTA was negative for pulmonary embolism, but demonstrated moderate bilateral pneumonia.? Patient's chest x-ray demonstrated patchy bilateral airspace disease consistent with pneumonia.? Patient's ABGs is pH 7.48, HC03 31, total CO2 32, base excess 8.? Patient was admitted for acute respiratory failure with hypoxia, metabolic alkalosis due to COVID pneumonia. Discharge Providers Provider Date of admission: 10/08/21 18:49 Discharge Date: 10/09/21 Consults: 10/08/21 23:32 Consult to Dietitian, Adult Routine Comment: Reason For Exam: BMI 37.7 10/09/21 00:28 Consult to Respiratory Therapy Evaluate & Treat Comment: Covid pneumonia Physician Instructions: Evaluate and treat 10/09/21 12:23 Consult to Home Health Routine Comment: Reason For Exam: Home Health RN, P.T, O.T. Discharge provider: Monty Patel DO Summary Hospital Course Discharge Diagnosis: 1. Acute respiratory failure with hypoxia, metabolic alkalosis, due to COVID pneumonia, acute, in the setting of tobacco abuse, acute on chronic, present on admission 2. Bipolar with anxiety, in the setting of benzodiazepine dependence, chronic, present on admission 3. Hypothyroidism, acquired, chronic, present on admission 4. Obesity, BMI 37.7 Hospital Course: Eliz Todd 51-year-old female with history of bipolar disorder, benzodiazepine dependency, agoraphobia, hypothyroidism presented to the emergency department with respiratory symptoms and history of recent positive COVID 09/24/2021. ?Patient was recently admitted with Acute respiratory failure with hypoxia due to COVID pneumonia discharged 10/03/21 on room air at discharge.??In the emergency room she was requiring 4-5 L for O2 saturation above 90%. She was admitted and was quickly weaned down to a couple of L and by the following morning she was again on room air. She was able to ambulate maintain oxygen saturations in the mid 90s on room air. She did receive a dose of remdesivir and IV dexamethasone. I suspect that her hypoxia may be related to polypharmacy, as well as her obesity. She was advised to obtain a sleep study as an outpatient. Given marked improvement in her inflammatory markers, and my only moderate inflammation on her CT angiogram (which was negative for a PE) her acute respiratory failure was more likely due to polypharmacy rather than continued COVID. Further possibilities include reactive airway disease after her viral infection. We discussed further treatment options given that she was recently here, and after discussion of risks and benefits we decided to prescribe steroids for a couple of days to complete a 5 day total course for possible COVID pneumonia. She was also prescribed inhaler as an outpatient. I do recommend that she continue trying to wean from any of the medications that she is on with the help of Dr. Smith. Exam Vital Signs (past 8 hours): - 10/09/21 07:50 10/09/21 09:18 10/09/21 11:00 Temperature 97.8 F Pulse Rate 68 88 Respiratory Rate 19 19 Blood Pressure 133/67 144/83 H Pulse Oximetry 90 L 92 90 L Oxygen Delivery Method Nasal Cannula Oxygen Flow Rate 0 Narrative Exam Narrative: General:? Patient is a well-developed, well-nourished obese female, moderately ill appearing in no distress at this time. HEENT:? Normocephalic, atraumatic, extraocular muscles intact, oral pharynx is clear and mucous membranes are dry, cracked.? Neck is supple and symmetric, trachea is midline, no adenopathy, no thyroid enlargement, nontender, no masses palpated.? Negative for JVD Chest:? Normal AP diameter and contour without kyphoscoliosis, no nasal flaring, retractions, mild tachypneic labored breathing. Lungs:? Auscultation of all lung mora are clear decreased, coarse, poor air exchange without adventitious sounds, wheezes, rhonchi, or rales. Cardio:? regular rate and rhythm without murmur, rubs, or gallops, no carotid bruit, no cardiac pulsations present. Abdomen:? Soft nontender, negative for organomegaly, or masses.? Bowel sounds are present in all 4 quadrants without guarding or rebound, no CVA tenderness. Musculoskeletal:? Muscle strength and tone are equal within normal limits, no deformity, crepitus, effusions, cyanosis, clubbing or edema present.? Full range of motion intact radial and pedal pulses are normal. Skin:? Warm dry and intact without rashes, ulcerations or petechiae.? Neuro:? Alert and orientated x3, strength is +5/5 in all extremities, sensation to touch intact, no gross deficits noted of cranial nerves. Psych:? Patient has a well-kept appearance, appropriate affect, mental status attitude thought context and judgment are appropriate for age. Objective Labs Result Diagrams: 10/08/21 15:49 10/08/21 15:49 Labs: Laboratory Results - last 24 hr 10/08/21 10/08/21 10/08/21 15:49 15:49 15:49 WBC 6.0 RBC 4.10 Hgb 13.0 Hct 38.7 MCV 94.4 MCH 31.8 MCHC 33.7 RDW 13.5 Plt Count 402 H Neut % (Auto) 72.8 Lymph % (Auto) 18.6 L [place] % (Auto) 6.3 Eos % (Auto) 1.4 L Baso % (Auto) 0.9 Neut # (Auto) 4400 Lymph # (Auto) 1100 [place] # (Auto) 400 Eos # (Auto) 100 Baso # (Auto) 100 ABG pH ABG pCO2 ABG pO2 ABG HCO3 ABG Total CO2 ABG O2 Saturation ABG Base Excess FiO2 Sodium 138 Potassium 3.9 Chloride 103 Carbon Dioxide 33 H BUN 12 Creatinine 0.57 Estimated GFR > 60.0 BUN/Creatinine Ratio 21.1 Glucose 100 Lactate 0.9 Calcium 8.9 Total Bilirubin 0.4 AST 57 H ALT 43 H Alkaline Phosphatase 92 Lactate Dehydrogenase 805 H D Total Creatine Kinase 22 L CK-MB (CK-2) TNP CK-MB (CK-2) Rel Index TNP Troponin I < 0.012 C-Reactive Protein 6.0 H NT-Pro-B Natriuret Pep 428 H Total Protein 6.0 L Albumin 3.3 L Globulin 2.7 Albumin/Globulin Ratio 1.2 Procalcitonin 0.06 Nasal Screen MRSA (PCR) SARS-CoV-2 (PCR) 10/08/21 10/08/21 10/09/21 17:44 19:45 06:00 WBC RBC Hgb Hct MCV MCH MCHC RDW Plt Count Neut % (Auto) Lymph % (Auto) [place] % (Auto) Eos % (Auto) Baso % (Auto) Neut # (Auto) Lymph # (Auto) [place] # (Auto) Eos # (Auto) Baso # (Auto) ABG pH 7.48 H ABG pCO2 41.0 ABG pO2 81 ABG HCO3 31 H ABG Total CO2 32 H ABG O2 Saturation 97 ABG Base Excess 8.0 H FiO2 36 Sodium Potassium Chloride Carbon Dioxide BUN Creatinine Estimated GFR BUN/Creatinine Ratio Glucose Lactate Calcium Total Bilirubin AST ALT Alkaline Phosphatase Lactate Dehydrogenase Total Creatine Kinase CK-MB (CK-2) CK-MB (CK-2) Rel Index Troponin I C-Reactive Protein NT-Pro-B Natriuret Pep Total Protein Albumin Globulin Albumin/Globulin Ratio Procalcitonin Nasal Screen MRSA (PCR) Positive for mrsa H SARS-CoV-2 (PCR) Positive H [facility], [facility] Medical History (Updated 10/09/21 @ 00:01 by FLYNN Prince) Benzodiazepine dependence Hypothyroidism [place] No significant medical problems Tobacco abuse Surgical History History of third molar tooth extraction Status post delivery (01/07/06) Family History (Updated 10/09/21 @ 00:06 by FLYNN Prince) Mother COVID-19 Father COVID-19 Social History household members: spouse Smoking Status: Current every day smoker alcohol intake: former Discharge Plan Discharge Plan Patient Disposition: Home Health Service Provider Discharge Comment: You were admitted to the hospital with low oxygen which improved quickly. This is likely due to a combination of your COVID infection, as well as some of the medications you are currently taking which can slow your breathing. Continue to taper medications with Dr. Smith. I do recommend you have a formal sleep study as well which can be obtained through your PCP. Discharge orders & Medications Prescriptions: New dexamethasone 6 mg tablet 6 mg PO DAILY 2 Days Qty: 2 0RF albuterol sulfate 90 mcg/actuation HFA aerosol inhaler 1 inh inhalation QID PRN (Reason: shortness of breath or wheezing) 30 Days Qty: 6.7 0RF Continued levothyroxine 25 mcg tablet 75 mcg PO DAILY Qty: 60 0RF methocarbamol 500 mg tablet 500 - 1,000 mg PO QID 0RF tramadol 50 mg tablet 50 mg PO Q6H PRN (Reason: pain) 0RF Label Comments: take 1 tablet by mouth every 6 hours if needed for pain -MAX 4 TABS PER DAY multivitamin Tablet 1 tab PO DAILY 0RF famotidine [Pepcid] 20 mg tablet 20 mg PO DAILY 0RF Rx Instructions: unknown dose L-theanine 200 mg PO BID 0RF Mirena 1 EACH intrauterine device 52 mg IU USEASDIRECTD Qty: 0 0RF propranolol 40 mg tablet 40 mg PO BID 0RF Rx Instructions: take 1 tablet by mouth twice a day MAY TAKE ADDITIONAL TABLET if needed for anxiety diazepam 10 mg tablet 30 mg PO BID 0RF Rx Instructions: Weekly prescriptions 10mg AM, 20 mg at 2 pm, 20mg at 5 pm, 10 mg at bedtime aripiprazole 5 mg tablet 7.5 mg PO BEDTIME 0RF Rx Instructions: 09/24/21 try increase from 5mg to 7.5mg Diet/Activity/Treatments Diet: Diet as Tolerated Activity: As tolerated Quality VTE Deep Vein Thrombosis/Pulmonary Embolism Present on Admission: No
[2021-10-12 08:34] LABS: PCO2 ABG 41.5 mmHg (35-45)
== END 2021-10-09 13:45 | disposition home health service (06) | DRG 177 ==
LOC: ED 16:30 → AC 18:50 → ICU 21:19
PROVIDERS: Nurse Practitioner Family; Admitting Provider Internal Medicine; Emergency Provider Emergency Medicine; Referring Provider Emergency Medicine; Visit Provider Internal Medicine
DX: U07.1 COVID-19 (principal); J12.82 Pneumonia due to coronavirus disease 2019; J96.01 Acute respiratory failure with hypoxia; E87.3 Alkalosis; F13.20 Sedative, hypnotic or anxiolytic dependence, uncomplicated; F31.9 Bipolar disorder, unspecified; F17.210 Nicotine dependence, cigarettes, uncomplicated; E03.9 Hypothyroidism, unspecified; F41.9 Anxiety disorder, unspecified
CPT/HCPCS: 36415; 36600; 71045; 71275; 80053; 82550; 82805; 83605; 83615; 83880; 84145; 84484; 85025; 86140; 87040; 87635; 87797; 93005; 93010; 94762; 99285; 99406; C9803; A9270; J1100; J1650; Q9967

== ENCOUNTER → 2024-09-16 14:59 | Outpatient (CLI) | payer MEDICARE, SELFPAY ==
[2023-04-28 15:06] VITALS: BMI 37.7
--- NOTE | 2024-09-16 15:02 | DI.US.S_ITS ---
PROCEDURE: US PELVIC COMPLETE INDICATIONS: CHRONIC RIGHT PELVIC PAIN TECHNIQUE: Real-time scanning was performed of the pelvic organs, with image documentation. Additional endovaginal scanning was necessary due to incomplete visualization of the adnexal and endometrial structures by transabdominal scanning. COMPARISON: [facility], US, US PELVIC COMPLETE, 10/10/2019, 15:59. FINDINGS: Uterus: Uterus is anteverted and normal in size at 7.4 x 4.1 x 5.2 cm. The myometrium is heterogeneous. IUD within the endometrium. Anterior, left intramural fibroid measuring 8 x 6 x 9 millimeter. Ovaries: The right ovary measures 1.5 x 2.4 x 1.6 cm, with a calculated ovarian volume of 3.1 cc. The left ovary was not visualized due to overlying bowel gas and body habitus. No adnexal mass. Other: No pathologic free abdominal or pelvic fluid. IMPRESSION: Diffuse heterogeneous myometrium, suggestive of adenomyosis. IUD within the endometrium. Normal sonographic appearance of the right ovary. We strive to produce accurate, complete, and clear reports of imaging services. To assist us in improving patient care, this report was composed using standard report templates and voice recognition software. Therefore, it may contain abnormal punctuation, insertions and/or omissions. Occasional wrong-word or sound-alike substitutions may occur. Though we review the report and make efforts to correct it, we do recommend that the report be read carefully in proper context to recognize any text inaccuracies. Dictated by: Sea Santoyo M.D. on 09/16/2024 at 17:11 Approved by: Sea Santoyo M.D. on 09/16/2024 at 17:12
== END ==
PROVIDERS: PCP Student in an Organized Health Care Education/Training Program; Referring Provider Obstetrics & Gynecology; Visit Provider Obstetrics & Gynecology
DX: D25.1 Intramural leiomyoma of uterus (principal); R10.31 Right lower quadrant pain; G89.29 Other chronic pain; Z97.5 Presence of (intrauterine) contraceptive device
CPT/HCPCS: 76830; 76856

== ENCOUNTER → 2025-03-07 15:57 | Outpatient (CLI) | payer MEDICARE, SELFPAY ==
[2023-04-28 15:06] VITALS: BMI 37.7
[2025-03-07 17:49] LABS: Follicle Stimulating Hormone 6.51 mIU/mL
[2025-03-07 18:05] LABS: Estradiol, Total 23.0 pg/mL
== END ==
PROVIDERS: PCP Student in an Organized Health Care Education/Training Program; Referring Provider Obstetrics & Gynecology; Visit Provider Obstetrics & Gynecology
DX: N95.1 Menopausal and female climacteric states (principal)
CPT/HCPCS: 36415; 82670; 83001